=== PATIENT | female | born 1935 ===

== ENCOUNTER 2016-12-30 12:58 | Observation (INO) | payer MEDICARE, MEDICAID ==
[2016-12-30 13:18] VITALS: BMI 18.3
[2016-12-30 13:50] LABS: ADD MANUAL DIFF? NO
--- NOTE | 2016-12-30 14:00 | ED PDOC ---
Arrival/HPI - General Chief Complaint: Syncope Time Seen by Provider: 12/30/16 13:29 Historian: Patient, Family (Yasmeen: [phone]) - History of Present Illness Narrative History of Present Illness (Text): 12/30/16 13:53 81 year old female with a past medical history that includes atrial fibrillation presents to the emergency department after reported syncopal episode. Family member states that patient was sitting in a chair and looked pale when she slipped out of the chair. Denies any trauma or injury. Pt denies any pain at this time. Family states the patient did not hit her head. Patient denies nausea or vomiting before the episode. No shaking. Time/Duration: Prior to Arrival Symptom Onset: Sudden Symptom Course: Resolved Modifying Factors (Text): None Associated Symptoms (Text): None Past Medical History - Provider Review Nursing Documentation Reviewed: Yes - Infectious Disease Hx of Infectious Diseases: None - Cardiac Hx Cardiac Disorders: Yes (Afib (on Coumadin)) Hx Congestive Heart Failure: Yes Hx Hypertension: Yes - Pulmonary Hx Respiratory Disorders: No - Neurological Hx Neurological Disorder: Yes HX Cerebrovascular Accident: Yes ("2-3 weeks ago" as per family) Hx Dementia: Yes - HEENT Hx HEENT Disorder: No - Renal Hx Renal Disorder: No - Endocrine/Metabolic Hx Hypothyroidism: Yes - Hematological/Oncological Hx Blood Transfusions: No Hx Blood Transfusion Reaction: No - Integumentary Hx Dermatological Disorder: No - Musculoskeletal/Rheumatological Hx Arthritis: Yes - Gastrointestinal Hx Gastrointestinal Disorders: No - Genitourinary/Gynecological Hx Genitourinary Disorders: Yes Hx Urinary Tract Infection: Yes - Psychiatric Hx Psychophysiologic Disorder: Yes Hx Depression: Yes Hx Substance Use: No - Surgical History Other/Comment: Colonoscopy in 2012 - Anesthesia Hx Anesthesia Reactions: No Hx Malignant Hyperthermia: No Family/Social History - Physician Review Nursing Documentation Reviewed: Yes Family/Social History: Unknown Family HX Smoking Status: Unknown If Ever Smoked Hx Alcohol Use: No Hx Substance Use: No Allergies/Home Meds Allergies/Adverse Reactions: Allergies No Known Allergies Allergy (Verified 12/30/16 13:09) Home Medications: Home Meds Medication Instructions Recorded Confirmed Cevimeline HCl 30 mg PO TID 12/08/15 12/30/16 Review of Systems - Physician Review All systems were reviewed & negative as marked: Yes Physical Exam - Physical Exam Narrative Physical Exam (Text): - Review of Systems Constitutional: Normal. absent: Fatigue, Weight Change, Fevers Eyes: Normal ENT: Normal Respiratory: Normal absent: SOB, Cough, Sputum Cardiovascular: Syncope absent: Chest pain, Palpitations Gastrointestinal: Normal absent: Abdominal pain, Diarrhea, Nausea, Vomiting Genitourinary: Normal. absent: Dysuria, Frequency, Hematuria Musculoskeletal: Normal. absent: Arthralgias, Back Pain, Neck Pain Skin: Normal Neurological: Normal absent: Focal Weakness Endocrine: Normal Hemo/Lymphatic: Normal Psychiatric: Normal - Physical exam Patient appears age appropriate, speaking full sentences without difficulty - Systems Exam Head: Present: Atraumatic, Normocephalic Pupils: Present: PERRL Extraocular Muscles: Present: EOMI Conjunctiva: Present: Normal Mouth: Present: Moist Mucous Membranes Neck: Present: Normal Range of Motion. No: MIDLINE TENDERNESS, Paraspinal Tenderness Respiratory/Chest: Present: Clear to Auscultation, Good Air Exchange. No: Respiratory Distress, Accessory Muscle Use, Tachypneic Cardiovascular: Present: Irregularly rhythm. Normal S1, S2, Peripheral Pulses Present. No: Murmurs Abdomen: Present: Normal Bowel Sounds, No: Tenderness, Peritoneal Signs, Rebound, Guarding, Distention Back: Present: Normal Inspection. No: Midline Tenderness, Paraspinal Tenderness Upper Extremity: Present: Normal Inspection. No: Cyanosis, Edema Lower Extremity: Present: Normal Inspection. No: Edema Neurological: Present: GCS=15, Speech Normal, cranial nerves II through XII fully intact with no cerebellar abnormality, neuro-sensory fully intact. No focal neurological deficits. Skin: Present: Warm, Dry, Normal Color. No: Rashes Lymphatic: Present: OX3, NI, NC Psychiatric: Present: Alert, Oriented x 3, Normal Insight, Normal Concentration Vital Signs Reviewed: Yes Vital Signs Temp Pulse Resp BP Pulse Ox 12/30/16 13:17 98.6 F 78 19 102/59 L 100 Temperature: Afebrile Blood Pressure: Normal Pulse: Bradycardic Respiratory Rate: Normal Appearance: Positive for: Well-Appearing, Non-Toxic, Comfortable Pain Distress: None Mental Status: Positive for: Alert and Oriented X 3 Finger Stick Blood Glucose: 126 Medical Decision Making ED Course and Treatment: Impression: 81 year old female with a past medical history that includes atrial fibrillation presents s/p reported syncopal episode. On physical exam, patient has irregular rhythm, rate controlled (states she has a hx of a. fib). No focal neurological deficits. Differential Diagnosis included but are not limited to: Syncope Plan: -- CT Head, EKG, Chest X-ray -- Labs -- Reassess and disposition Prior Visits: Notes and results from previous visits were reviewed. Patient was discharged on 12/11/16 after being admitted for syncopal episode/CVA. Progress Notes: PROCEDURE: CT HEAD WITHOUT CONTRAST. Hot Die Press Feeder : Brady Avendaño MD IMPRESSION: No acute intracranial findings EKG shows irregular rhythm at [address]-segment elevations. Atrial fibrillation. Interpreted by me. 12/30/16 15:[address] Sahu, agrees with obs under his service with Ifeoma Keller and Heath Stern on consult pt in no distress no focal neuro deficits on reeval, aware of and agrees with plan - Lab Interpretations Lab Results: 12/30/16 13:35 12/30/16 13:35 Lab Results 12/30/16 13:35: WBC 4.9 D, RBC 3.93, Hgb 11.5 L, Hct 34.4 L, MCV 87.5, MCH 29.3 , MCHC 33.4, RDW 15.2 H, Plt Count 117 L, MPV 11.2 H, Gran % 69.4 H, Lymph % ( Auto) 22.6, Scott % (Auto) 6.4 H, Eos % (Auto) 1.4 L, Baso % (Auto) 0.2, Gran # 3.38, Lymph # 1.1 L, Scott # 0.3, Eos # 0.1, Baso # 0.01, PT 14.2 H, INR 1.31 H, APTT 27.5, Sodium 132, Potassium 4.1, Chloride 98, Carbon Dioxide 27, Anion Gap 11, BUN 20, Creatinine 0.7, Est GFR ( Amer) > 60, Est GFR (Non-Af Amer) > 60, Random Glucose 111 H, Calcium 8.8, Total Bilirubin 0.6, AST 31, ALT 12, Alkaline Phosphatase 57, Lactate Dehydrogenase 427, Total Creatine Kinase < 20 L , Troponin I < 0.01, Total Protein 8.5 H, Albumin 3.6, Globulin 4.9, Albumin/ Globulin Ratio 0.7 L - RAD Interpretation Radiology Orders: 12/30/16 13:30 HEAD W/O CONTRAST [CT] Stat CHEST PORTABLE [RAD] Stat - Scribe Statement The provider has reviewed the documentation as recorded by the Richie Liang Provider Scribe Attestation: All medical record entries made by the Scribe were at my direction and personally dictated by me. I have reviewed the chart and agree that the record accurately reflects my personal performance of the history, physical exam, medical decision making, and the department course for this patient. I have also personally directed, reviewed, and agree with the discharge instructions and disposition. Disposition/Present on Arrival - Present on Arrival Any Indicators Present on Arrival: No History of DVT/PE: No History of Uncontrolled Diabetes: No Urinary Catheter: No History of Decub. Ulcer: No History Surgical Site Infection Following: None - Disposition Have Diagnosis and Disposition been Completed?: Yes Diagnosis: Syncope Disposition: HOSPITALIZED Disposition Time: 15:16 Patient Plan: Observation Patient Problems: Current Active Problems Problem Status Diagnosed Syncope Acute Condition: FAIR Discharge Instructions (ExitCare): Syncope (ED)
[2016-12-30 14:06] LABS: BASO # 0.01 K/mm3 (0.0-2.0); BASO % 0.2 % (0.0-3.0); EOS # 0.1 (0.0-0.7); EOS % 1.4 % (1.5-5.0); GRAN # 3.38 (1.4-6.5); GRAN % 69.4 % (50.0-68.0); HEMATOCRIT 34.4 % (36.0-48.0); LYMPH # 1.1 (1.2-3.4); LYMPH % 22.6 % (22.0-35.0); MEAN CELL VOLUME 87.5 fL (80.0-105.0); MEAN CORPUSCULAR HEMOGLOBIN 29.3 pg (25.0-35.0); MEAN CORPUSCULAR HGB CONC 33.4 g/dl (31.0-37.0); MEAN PLATELET VOLUME 11.2 fl (7.0-11.0); MONO # 0.3 (0.1-0.6); MONO % 6.4 % (1.0-6.0); PLATELET COUNT 117 10^3/uL (120.0-450.0); RED CELL DISTRIBUTION WIDTH 15.2 % (11.5-14.5); WHITE BLOOD COUNT 4.9 10^3/ul (4.5-11.0)
[2016-12-30 14:07] LABS: ALB/GLOB RATIO 0.7 (1.1-1.8); ALKALINE PHOSPHATASE 57 U/L (38-133); ALT/SGPT 12 U/L (7-56); AST/SGOT 31 U/L (15-39); BILIRUBIN,TOTAL 0.6 mg/dL (0.2-1.3); BLOOD UREA NITROGEN 20 mg/dL (7-21); CALCIUM 8.8 mg/dL (8.4-10.5); CARBON DIOXIDE 27 mmol/L (21-33); CHLORIDE 98 mmol/L (98-107); GFR AFRICAN-AMERICAN > 60; GLUCOSE,RANDOM 111 mg/dL (70-110); POTASSIUM 4.1 mmol/L (3.6-5.0); SODIUM 132 mmol/L (132-148); TOTAL PROTEIN 8.5 g/dL (5.8-8.3)
[2016-12-30 14:18] LABS: INR 1.31 (0.93-1.08); PARTIAL THROMBOPLASTIN TIME 27.5 Seconds (23.7-30.8)
[2016-12-30 14:22] LABS: TROPONIN I < 0.01 ng/mL
--- NOTE | 2016-12-30 14:36 | RAD ---
HISTORY: cough COMPARISON: 12/04/2016 FINDINGS: LUNGS: There is a right lung nodule measuring 18 mm in diameter. This is unchanged. The lungs are otherwise clear PLEURA: No significant pleural effusion identified, no pneumothorax apparent. CARDIOVASCULAR: Normal. OSSEOUS STRUCTURES: No significant abnormalities. VISUALIZED UPPER ABDOMEN: Normal. OTHER FINDINGS: None. IMPRESSION: No change in right lung nodule. No acute findings
--- NOTE | 2016-12-30 15:06 | CT ---
PROCEDURE: CT HEAD WITHOUT CONTRAST. HISTORY: syncope COMPARISON: 12/04/2016 TECHNIQUE: Axial computed tomography images were obtained through the head/brain without intravenous contrast. Radiation dose: Total exam DLP = 688 mGy-cm. This CT exam was performed using one or more of the following dose reduction techniques: Automated exposure control, adjustment of the mA and/or kV according to patient size, and/or use of iterative reconstruction technique. FINDINGS: HEMORRHAGE: No intracranial hemorrhage. BRAIN: No mass effect or edema. There is left frontal encephalomalacia. Chronic microvascular changes are seen in the periventricular white matter. VENTRICLES: Unremarkable. No hydrocephalus. CALVARIUM: Unremarkable. PARANASAL SINUSES: Unremarkable as visualized. No significant inflammatory changes. MASTOID AIR CELLS: Unremarkable as visualized. No inflammatory changes. OTHER FINDINGS: None. IMPRESSION: No acute intracranial findings
--- NOTE | 2016-12-30 18:53 | CARD ---
APPROVED REPORT EKG Measurement Heart [id number] <Conclusion> Atrial fibrillation Rightward axis T wave abnormality, consider anterolateral ischemia or digitalis effect Abnormal ECG
--- NOTE | 2016-12-30 21:05 | CON ---
DATE: 12/30/2016 HISTORY OF PRESENT ILLNESS: This is an 81-year-old female with past medical history of atri al fibrillation. The patient was sitting in a chair, ____ and fell out of the chair. CAT scan of th e head in the Emergency Room was done, did not show any bleed. Called to evaluate the patient. A pa st medical history of atrial fibrillation and congestive heart failure and hypertension. The patient also had a stroke recently 2-3 weeks ago as per family, and dementia and hypothyroidism. REVIEW OF SYSTEMS: A 10-point review of systems was negative. ALLERGIES: No known drug allergies. SOCIAL HISTORY: Does not smoke, does not drink. PHYSICAL EXAMINATION: HEENT: Normocephalic, atraumatic. NECK: Supple. NEUROLOGIC: Alert, awake, oriented x 3. No aphasia. Cranial nerves II through XII were tested. Pu pils reactive. EOM intact. Visual carmona full. No facial asymmetry. Tongue midline. MOTOR EXAMIN ATION: Spontaneous movement of all the extremities noted. Deep tendon reflexes 1+. Both plantars a re downgoing. Sensory appears intact. Cerebellar gait deferred. IMPRESSION: Syncope, less likely seizure. CAT scan of the head was negative. Workup in progress. We will do EEG and follow up. Santosh Stern MD cc: [id number] TT: 12/30/2016 21:04:59 Confirmation # [id number] Dictation # [id number] [email or web address]
[2016-12-31 06:00] VITALS: TEMP 98; O2SAT 97
[2016-12-31] MEDS ORDERED: Levothyroxine 75 MCG TAB PO SCH (08:30)
--- NOTE | 2016-12-31 10:51 | HP ---
SUBJECTIVE: I saw her in her room this morning. She is sitting up, resting comfortably, alert, talking Guatemalan and broken Estonian, but she is comfortable, in no acute distress. She comes in, an 81-year-old female with a family member. I saw her sitting in a chair, looked pale and slipped out of her chair. No trauma but she was kind out of it. She did not hit her head. No nausea, vomiting, no shaking. PAST MEDICAL HISTORY: She has a past medical history of atrial fibrillation, hypertension, CHF, CVA 2-3 weeks ago as per the family, a little dementia, hypothyroidism, arthritis, depression, urinary tract infections. Colonoscopy in 2011. FAMILY HISTORY: Hypertension in the family. SOCIAL HISTORY: No smoking, no drinking, no drugs. ALLERGIES: No known drug allergies. MEDICATIONS: She is on Norvasc, Coumadin, Refresh eyedrops, Synthroid, Cevimeline, and carvedilol. REVIEW OF SYSTEMS: No apparent change in vision or hearing. No pain. No chest pain or shortness of breath, no abdominal pain, no skin issues. No focal weakness. She is quite comfortable. PHYSICAL EXAMINATION: VITAL SIGNS: She has 98.6 temp, 78 pulse, 19 respiratory rate, 102/ blood pressure, 100% O2 sat. HEENT: Head is atraumatic, normocephalic. Extraocular muscles are intact. Pupils reactive to light. Throat moist. NECK: Supple, no tenderness. HEART: Irregular rhythm, normal S1, S2. LUNGS: Decreased breath sounds but clear to auscultation. No rhonchi, rales or wheezes. ABDOMEN: Soft, nontender, positive bowel sounds, no guarding, no rebound, no CVA tenderness. EXTREMITIES: Have no edema. She can move all 4 extremities. GCS is 15, normal speech. NEUROLOGIC: Cranial nerves II-XII grossly intact. Skin is warm and dry. Thyroid midline. No palpable lymphadenopathy. She is alert. I understand is going on. Well-appearing, nontoxic. She is here for syncope, AFib, old CVA, dementia, hypothyroid. She will have a consult with neurology and cardiology. She is on Coreg, Coumadin, Norvasc, and Synthroid. LABORATORY DATA: She has a 132 sodium, potassium 4.1, BUN is 20, creatinine 0.7. Sugar is 111, calcium is 8.8, total bili is 0.6, AST 31, ALT is 12, alkaline phosphatase 57. Troponin is less than 0.01, total protein is 8.5. INR is 1.31. Sodium 132, potassium 4.1, BUN 20, creatinine 0.7, GFR is greater than 60. She did well with her blood tests. CT scan of the head: There is no acute intracranial findings. Chest x-ray showed no change in right lung nodule. An EKG showed AFib, rate controlled. PLAN: If it is okay with Dr. Keller and Dr. Stern will discharge her today. She is in observation. She is here for syncope. Dario Sahu DO cc: [id number] TT: 12/31/2016 10:51:26 jn MTDD
--- NOTE | 2016-12-31 11:54 | CP.PCM.PCO ---
Physician Communication Note - Physician Communication Note Physician Communication Note: syncope sec transient cerebral hypoperfusion. can do eeg as outpt.
--- NOTE | 2016-12-31 15:19 | CON ---
DATE: 12/31/2016 HISTORY OF PRESENT ILLNESS: The patient is an 81-year-old woman who presents with a syncopal episode . PAST MEDICAL HISTORY: Notable for chronic atrial fibrillation as well as documented apical thrombus in the past. The patient has had a CVA and TIA in the past. The patient has a history of hypertension. Currently, the patient is without chest pain, without shortness of breath. The patient is currently on Coumadin in which her PT/INR came back subtherapeutic. SOCIAL HISTORY: Lives at home. REVIEW OF SYSTEMS: A 14-point review of systems was reviewed. No cardiac symptomatology is noted. PHYSICAL EXAMINATION: VITAL SIGNS: Blood pressure 138/63. The heart rate is in the 80s, atrial fibrillation. NECK: Negative JVD. LUNGS: Without rales. HEART: Revealed S1, S2. EXTREMITIES: Without edema. EKG shows atrial fibrillation with nonspecific ST-T changes. LABORATORIES: INR yesterday was 1.31, hemoglobin is 11.5. Chemistries reveal troponins that are neg ative x 1. IMPRESSION: 1. Status post syncope without documented cardiac cause of her syncope. No left ventricular outflo w obstruction is noted. No bradycardia is noted. 2. History of hypertension. 3. History of cerebrovascular accident. 4. Chronic atrial fibrillation. 5. Documented left ventricular thrombus. Given these findings, given the patient's inability to remain consistently anticoagulated on Coumadin , we will change her warfarin to Eliquis 2.5 b.i.d. to better protect her from thromboembolism from h er atrial fibrillation and apical thrombus. Rohith Keller MD cc: [id number] TT: 12/31/2016 15:19:23 Confirmation # [id number] Dictation # [id number] mina
--- NOTE | 2016-12-31 16:41 | DS ---
I saw her resting in bed. She is comfortable, in good spirits. No acute distress. Neuro ordered so me tests. We are waiting for cardiology to see her this morning. But, she is comfortable, she is at her baseline. VITAL SIGNS: She has a 98 temp, 91 pulse, 147/90 blood pressure, 18 respiratory rate, 97% O2 sat on room air. MEDICATIONS: She is back on her medications: Coreg, Coumadin, Norvasc, and Synthroid. PHYSICAL EXAMINATION: VITAL SIGNS: Good. HEENT: Head is atraumatic. HEART: Regular rate. LUNGS: Clear to auscultation. ABDOMEN: Soft. EXTREMITIES: No edema. Neuro had seen her, doing a couple of workups. Waiting for cardiology to come in. If everything is okay, I would like to discharge her home today. She was here for syncope, rate controlled AFib, lyn tary right lung nodule, old CVA, dementia, hypothyroid. She will follow up next week. Dario Sahu DO cc: [id number] TT: 12/31/2016 16:41:07 sn
--- NOTE | 2016-12-31 19:10 | EEG ---
DATE: 12/31/2016 AGE: An 81-year-old woman. DIAGNOSIS: Syncope. MEDICATIONS: Reviewed via nurse's reconciliation sheet. INTERPRETATION: This is a 16-channel international recording. The background activity was composed of 6 cycles per second. There was a limited amount of beta activity at 16-20 cycles per second seen in this tracing. There was an increased amount of theta activity at 5-7 cycles seen in this tracing. Drowsiness was characterized by mixed beta and theta activities. Sleep was characterized by vertex transient waves, sleep spindles, and bilateral slowing. Photic stimulation showed no change in the tracing. No paroxysmal activity noted in this recording. There is evidence of diffuse slowing throu ghout the EEG in both electrical carmona. CONCLUSION: Abnormal electroencephalogram due to presence of diffuse slowing, consistent with bilate ral cerebral dysfunction. Please clinically correlate. No evidence of any seizure-like activity. Anam Stern MD cc: [id number] TT: 12/31/2016 19:10:09 Confirmation # [id number] Dictation # [id number] [email or web address]
[2016-12-31 19:13] VITALS: BP 122/77; PULSE 90; RESP 20
== END 2016-12-31 21:00 | disposition home or self-care (01) ==
LOC: ED 12:58 → ERH 15:18 → 2RSO 18:25
PROVIDERS: ADMIT Family Medicine; ATTEND Family Medicine
DX: R55 Syncope and collapse (principal); I48.2 Chronic atrial fibrillation; I50.9 Heart failure, unspecified; I11.0 Hypertensive heart disease with heart failure; W07.XXXA Fall from chair, initial encounter; F03.90 Unspecified dementia, unspecified severity, without behavioral disturbance, psychotic disturbance, mood disturbance, and anxiety; E03.9 Hypothyroidism, unspecified; Z86.73 Personal history of transient ischemic attack (TIA), and cerebral infarction without residual deficits; M19.90 Unspecified osteoarthritis, unspecified site; F32.89 Other specified depressive episodes; Z87.440 Personal history of urinary (tract) infections; Z79.01 Long term (current) use of anticoagulants; Z82.49 Family history of ischemic heart disease and other diseases of the circulatory system; R91.1 Solitary pulmonary nodule
CPT/HCPCS: 70450; 71010; 80053; 82550; 82948; 83615; 84484; 85025; 85610; 85730; 93005; 95812; 99285; G0378

== ENCOUNTER 2017-05-08 11:43 | Inpatient (IN) | payer MEDICARE, MEDICAID ==
[2017-05-08 11:53] VITALS: BMI 19.9
--- NOTE | 2017-05-08 12:02 | ED PDOC ---
Arrival/HPI - General Chief Complaint: Syncope Time Seen by Provider: 05/08/17 11:44 Historian: Patient - History of Present Illness Narrative History of Present Illness (Text): 05/08/17 12:10 Emily Dave is an 82 year old female who presents to the emergency department complaining of near syncope prior to arrival and reported hypotension by EMS en route to emergency department. Patient states that she was sitting at home when she told her home health aide that she felt lightheaded. When patient stated that she felt like she was "going to pass out, " EMS was called. Patient denies any fever, cough, chest pain, shortness of breath headache, diarrhea, or any other complaints at this time. 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) Other/Comment: bilateral eye twitching, unrelated to cva - Renal Hx Renal Disorder: No - Endocrine/Metabolic Hx Hypothyroidism: Yes - Hematological/Oncological Hx Blood Transfusions: No Hx Blood Transfusion Reaction: No - Integumentary Hx Dermatological Disorder: No - Musculoskeletal/Rheumatological Hx Arthritis: Yes Hx Falls: Yes - Gastrointestinal Hx Gastrointestinal Disorders: No - Genitourinary/Gynecological Hx Genitourinary Disorders: Yes Hx Urinary Tract Infection: Yes - Psychiatric Hx Depression: Yes Hx Substance Use: No - Surgical History Other/Comment: Colonoscopy in 2011 - Anesthesia Hx Anesthesia Reactions: No Hx Malignant Hyperthermia: No Family/Social History - Physician Review Nursing Documentation Reviewed: Yes Family/Social History: No Known Family HX Smoking Status: Never Smoked Hx Alcohol Use: No Hx Substance Use: No Allergies/Home Meds Allergies/Adverse Reactions: Allergies No Known Allergies Allergy (Verified 12/30/16 13:09) Home Medications: Home Meds Medication Instructions Recorded Confirmed Apixaban [Eliquis] 5 mg PO DAILY 05/08/17 05/08/17 Atorvastatin [Lipitor] 40 mg PO DAILY 05/08/17 05/08/17 Carvedilol [Coreg] 12.5 mg PO DAILY 05/08/17 05/08/17 Cevimeline HCl [Cevimeline HCl] 30 mg PO DAILY 05/08/17 05/08/17 Levothyroxine [Synthroid] 75 mcg PO DAILY 05/08/17 05/08/17 amLODIPine [Norvasc] 2.5 mg PO DAILY 05/08/17 05/08/17 cycloSPORINE [Restasis] 0.05 % OP DAILY 05/08/17 05/08/17 Review of Systems - Physician Review All systems were reviewed & negative as marked: Yes - Review of Systems Constitutional: absent: Fevers, Night Sweats Eyes: absent: Vision Changes ENT: absent: Hearing Changes Respiratory: absent: SOB, Cough Cardiovascular: Syncope (near syncope). absent: Chest Pain Gastrointestinal: absent: Abdominal Pain Genitourinary Female: absent: Dysuria, Frequency Musculoskeletal: absent: Arthralgias Skin: absent: Rash, Pruritis Neurological: absent: Headache, Dizziness Endocrine: absent: Diaphoresis Hemo/Lymphatic: absent: Adenopathy Psychiatric: absent: Anxiety Physical Exam Vital Signs Reviewed: Yes Vital Signs Temp Pulse Resp BP Pulse Ox 05/08/17 11:50 97.9 F 70 16 128/71 100 Temperature: Afebrile Blood Pressure: Normal Pulse: Regular Respiratory Rate: Normal Appearance: Positive for: Well-Appearing, Non-Toxic, Comfortable Pain Distress: None Mental Status: Positive for: Alert and Oriented X 3 - Systems Exam Head: Present: Atraumatic, Normocephalic Pupils: Present: PERRL Extroacular Muscles: Present: EOMI Conjunctiva: Present: Normal Mouth: Present: Moist Mucous Membranes Neck: Present: Normal Range of Motion Respiratory/Chest: Present: Clear to Auscultation, Good Air Exchange. No: Respiratory Distress, Accessory Muscle Use Cardiovascular: Present: Regular Rate and Rhythm, Normal S1, S2. No: Murmurs Abdomen: Present: Normal Bowel Sounds. No: Tenderness, Distention, Peritoneal Signs Back: Present: Normal Inspection Upper Extremity: Present: Normal Inspection. No: Cyanosis, Edema Lower Extremity: Present: Normal Inspection. No: Edema Neurological: Present: GCS=15, CN II-XII Intact, Speech Normal Skin: Present: Warm, Dry, Normal Color. No: Rashes Psychiatric: Present: Alert, Oriented x 3, Normal Insight, Normal Concentration Medical Decision Making ED Course and Treatment: 05/08/17 12:01 Impression: 82 year old female complaining of near syncope prior to arrival and reported hypotension by EMS en route to emergency department . Differential Diagnosis included but are not limited to: near syncope Plan: -- EKG -- Chest X-ray -- Urinalysis -- Labs -- IV Fluids -- Reassess and disposition Prior Visits: Notes and results from previous visits were reviewed. Patient last seen in the ED on 12/30/16 for a syncopal episode that day. Patient was admitted to hospitalist care for further evaluation. Progress Notes: EKG: Ordered, reviewed, and independently interpreted the EKG. Rate : 78 BPM Rhythm : A Fib Interpretation : T-wave inversions in inferior lateral leads, normal intervals. Comparison : No change from previous on 12/30/16. 05/08/17 16:17 Labs reviewed. EKG noted. CXR nl. Case discussed with Dr. Spencer who will accept on her service to Tele Obs. She requested Dr. Benavides and Dr. Stern. - Lab Interpretations Lab Results: 05/08/17 12:10 05/08/17 13:00 Lab Results 05/08/17 13:00: Sodium 135, Potassium 4.1, Chloride 100, Carbon Dioxide 26, Anion Gap 13, BUN 20, Creatinine 0.7, Est GFR ( Amer) > 60, Est GFR (Non- Af Amer) > 60, Random Glucose 104, Calcium 8.7, Magnesium 1.9, Total Bilirubin 0.6, AST 54 H, ALT 44, Alkaline Phosphatase 79, Lactate Dehydrogenase 360, Total Creatine Kinase 21 L, Troponin I < 0.01, Total Protein 8.4 H, Albumin 3.6 , Globulin 4.8, Albumin/Globulin Ratio 0.8 L 05/08/17 12:10: PT 12.5 H, INR 1.16 H, APTT 27.0 05/08/17 12:10: WBC 4.4 L, RBC 4.02, Hgb 11.9 L, Hct 35.3 L, MCV 87.8, MCH 29.6 , MCHC 33.7, RDW 14.6 H, Plt Count 140, MPV 11.6 H, Gran % 72.1 H, Lymph % (Auto ) 19.7 L, [place] % (Auto) 6.8 H, Eos % (Auto) 1.4 L, Baso % (Auto) 0.0, Gran # 3.18, Lymph # 0.9 L, [place] # 0.3, Eos # 0.1, Baso # 0.00 - RAD Interpretation Radiology Orders: 05/08/17 12:13 CHEST PORTABLE [RAD] Stat 05/08/17 15:24 Brain [HEAD W/O CONTRAST] [CT] Stat - Medication Orders Current Medication Orders: Acetaminophen (Tylenol 325mg Tab) 650 mg PO Q4H PRN PRN Reason: Pain, Mild (1-3) Ondansetron HCl (Zofran Inj) 4 mg IVP Q4H PRN PRN Reason: Nausea/Vomiting Discontinued Medications Sodium Chloride (Sodium Chloride 0.9%) 500 mls @ 999 mls/hr IV .Q31M STA Stop: 05/08/17 12:43 Last Admin: 05/08/17 12:30 Dose: 999 mls/hr Disposition/Present on Arrival - Present on Arrival Any Indicators Present on Arrival: No History of DVT/PE: No History of Uncontrolled Diabetes: No Urinary Catheter: No History of Decub. Ulcer: No History Surgical Site Infection Following: None - Disposition Have Diagnosis and Disposition been Completed?: Yes Diagnosis: Near syncope Disposition: HOSPITALIZED Disposition Time: 15:22 Patient Plan: Observation Condition: FAIR Forms: Pinger (E[place]ian)
[2017-05-08] MEDS ORDERED: Sodium Chloride 0.9% 500 ML IV STA (12:13)
[2017-05-08 12:41] LABS: EOS # 0.1 (0.0-0.7); EOS % 1.4 % (1.5-5.0); GRAN # 3.18 (1.4-6.5); GRAN % 72.1 % (50.0-68.0); HEMOGLOBIN 11.9 g/dL (12.0-16.0); LYMPH # 0.9 (1.2-3.4); LYMPH % 19.7 % (22.0-35.0); MEAN CELL VOLUME 87.8 fl (80.0-105.0); MEAN CORPUSCULAR HEMOGLOBIN 29.6 pg (25.0-35.0); MEAN CORPUSCULAR HGB CONC 33.7 g/dl (31.0-37.0); MEAN PLATELET VOLUME 11.6 fl (7.0-11.0); MONO # 0.3 (0.1-0.6); MONO % 6.8 % (1.0-6.0); PLATELET COUNT 140 10^3/uL (120.0-450.0); RBC 4.02 10^6/uL (3.5-6.1); RED CELL DISTRIBUTION WIDTH 14.6 % (11.5-14.5); WHITE BLOOD COUNT 4.4 10^3/ul (4.5-11.0)
--- NOTE | 2017-05-08 12:41 | RAD ---
HISTORY: Near syncope COMPARISON: 12/30/2016 FINDINGS: LUNGS: There is a 15 mm nodule in the right lung. This is unchanged PLEURA: No significant pleural effusion identified, no pneumothorax apparent. CARDIOVASCULAR: Mild cardiomegaly OSSEOUS STRUCTURES: No significant abnormalities. VISUALIZED UPPER ABDOMEN: Normal. OTHER FINDINGS: None. IMPRESSION: No active disease.
[2017-05-08 12:46] LABS: INR 1.16 (0.93-1.08); PROTHROMBIN TIME 12.5 Seconds (9.9-11.8)
[2017-05-08 13:33] LABS: ALB/GLOB RATIO 0.8 (1.1-1.8); ALBUMIN 3.6 g/dL (3.0-4.8); ALT/SGPT 44 U/L (7-56); AST/SGOT 54 U/L (15-39); BLOOD UREA NITROGEN 20 mg/dL (7-21); CALCIUM 8.7 mg/dL (8.4-10.5); GFR AFRICAN-AMERICAN > 60; GFR NON-AFRICAN AMERICAN > 60; MAGNESIUM 1.9 mg/dL (1.7-2.2)
[2017-05-08 13:49] LABS: TROPONIN I < 0.01 ng/mL
--- NOTE | 2017-05-08 18:04 | CT ---
PROCEDURE: CT HEAD WITHOUT CONTRAST. HISTORY: near syncope COMPARISON: Noncontrast head CT performed 12/30/16 TECHNIQUE: Axial computed tomography images were obtained through the head/brain without intravenous contrast. Radiation dose: Total exam DLP = 725.84 mGy-cm. This CT exam was performed using one or more of the following dose reduction techniques: Automated exposure control, adjustment of the mA and/or kV according to patient size, and/or use of iterative reconstruction technique. FINDINGS: HEMORRHAGE: No intracranial hemorrhage. BRAIN: Diffuse atrophy with prominence of the ventricles and sulci noted. No mass effect or edema. Intracranial atherosclerotic calcifications. Left frontal encephalomalacia. Moderate scattered periventricular and subcortical white matter hypodensities, which are nonspecific, but often seen with chronic microvascular ischemic disease. Please note that MRI with diffusion imaging is more sensitive in the detection of acute ischemic event. VENTRICLES: No hydrocephalus. CALVARIUM: Unremarkable. PARANASAL SINUSES: Unremarkable as visualized. No significant inflammatory changes. MASTOID AIR CELLS: Partial opacification/ fluid within bilateral mastoid air cells. OTHER FINDINGS: None. IMPRESSION: Left frontal encephalomalacia. Nonspecific moderate scattered white matter changes as above. Partial opacification/fluid within bilateral mastoid air cells. Correlate clinically for possibility of mastoiditis. Generalized atrophy.
--- NOTE | 2017-05-08 20:12 | CON ---
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 She has had some mild generalized weakness, but no foal weakness of the extremities at this time. She is moving all extremities. No *------* seen on neuro exam. CT of the head showed no intracranial abnormalities, left frontal encephalomalacia, chronic ischemic changes. She is following simple commands. She is again hydrated. Blood pressure systolic and diastolic on the lower side as well.. PAST MEDICAL HISTORY: CHF, hypothyroidism, hyperlipidemia, atrial fibrillation on Eliquis, hypertension, history of left apex thrombosis, history of EF of 30-35%, history of syncopal events in the past. SOCIAL HISTORY: No illicit drug use, smoking, or EtOH abuse. FAMILY HISTORY: Noncontributory. ALLERGIES: NO KNOWN DRUG ALLERGY. MEDICATIONS: Reviewed by the nurse per reconciliation sheet. REVIEW OF SYSTEMS: A 14-point review of systems is negative except as in the HPI. PHYSICAL EXAMINATION: GENERAL: The patient is seen up in the bed, no acute distress. VITAL SIGNS: Afebrile, pulse rate of 80, blood pressure of 106/57, respiratory rate 20, oxygen saturation 98% on room air. HEENT: Head is atraumatic and normocephalic. PERRLA. Extraocular muscles intact. NECK: Supple. No JVD. No adenopathy noted. LUNGS: Clear to auscultation. No adventitious sounds. HEART: S1 and S2. Regular rate and rhythm. No murmurs, rubs, or gallops. ABDOMEN: Soft, nontender, nondistended. Bowel sounds present. EXTREMITIES: No clubbing and no cyanosis. Peripheral pulses 2+ felt bilaterally. NEUROLOGIC: The patient is alert and oriented to person, place, and month, but not year. Recall after 5 minutes is 0 out of 3. Cannot spell the work backwards. Poor attention span, slow thought process. Cranial nerves II through XII intact. Motor exam, slight increase tone throughout. Has mild right side upper extremity weakness, right slow finger tap from prior CVA. Toes are downgoing bilaterally. Sensory exam, light touch, pinprick, proprioception. Coordination, [id number] intact. Gait is deferred for now. DTRs are 1+ throughout. LABORATORY DATA: Sodium is 135, potassium 4.1, chloride 100, carbon dioxide 26, BUN of 20, creatine 0.7, random glucose of 104. ASSESSMENT: This is an 83-year-old woman with a history of atrial fibrillation on Eliquis,history of left anterior frontal and left thalamic infarct in the past, history of left apical thrombus, history of hypertension, hyperlipidemia, congestive heart failure, hypothyroidism, came in for near syncopal episode and found to be lightheaded and was felt like she was almost going to pass out. Neuro exam has some mild residual right side slow finger tap from prior CVA. She has low systolic and diastolic blood pressure. Her near syncopal event is likely secondary to transient cerebral hypoperfusion to the brain given that she has an EF of 30-35%. In the past, her EEG showed mild cerebral dysfunction. No evidence of any epileptiform activity in December 2016. Currently, she is clinically stable. At this time, we recommend to continue with aspirin, Eliquis, or stroke prevention given that she has apical thrombus and increased respiratory strokes. 2. Continue Synthroid for hypothyroidism. 3. Monitor electrolytes and avoid sudden drops in her systolic and diastolic blood pressures. 4. Continue to monitor on a Holter to evaluate for any abnormal arrhythmias and follow up with eyeglass fitter recommendations. 5. Get orthostatic vital signs and continue on current present medical management. Anam Stern MD
[2017-05-08] MEDS ORDERED: Pneumococcal 23-Valent Vaccine IM ONE (22:41)
--- NOTE | 2017-05-09 00:24 | CARD ---
APPROVED REPORT EKG Measurement Heart [id number] <Conclusion> Atrial fibrillation T wave abnormality, consider inferolateral ischemia or digitalis effect Prolonged QT Abnormal ECG
[2017-05-09 10:16] LABS: BASO # 0.01 K/mm3 (0.0-2.0); BASO % 0.2 % (0.0-3.0); EOS # 0.1 (0.0-0.7); GRAN # 3.43 (1.4-6.5); GRAN % 68.6 % (50.0-68.0); LYMPH # 1.1 (1.2-3.4); LYMPH % 21.4 % (22.0-35.0); MEAN CELL VOLUME 87.5 fl (80.0-105.0); MEAN CORPUSCULAR HEMOGLOBIN 29.2 pg (25.0-35.0); MEAN CORPUSCULAR HGB CONC 33.3 g/dl (31.0-37.0); MEAN PLATELET VOLUME 11.5 fl (7.0-11.0); MONO # 0.4 (0.1-0.6); MONO % 8.8 % (1.0-6.0); PLATELET COUNT 129 10^3/uL (120.0-450.0); RBC 3.77 10^6/uL (3.5-6.1); RED CELL DISTRIBUTION WIDTH 14.4 % (11.5-14.5)
[2017-05-09 10:26] LABS: ALB/GLOB RATIO 0.8 (1.1-1.8); ALBUMIN 3.9 g/dL (3.0-4.8); ALT/SGPT 46 U/L (7-56); AST/SGOT 52 U/L (15-39); BLOOD UREA NITROGEN 14 mg/dL (7-21); CALCIUM 8.7 mg/dL (8.4-10.5); GFR AFRICAN-AMERICAN > 60; GFR NON-AFRICAN AMERICAN > 60; MAGNESIUM 1.8 mg/dL (1.7-2.2)
[2017-05-09 10:37] LABS: TROPONIN I < 0.01 ng/mL
--- NOTE | 2017-05-09 19:41 | CON ---
DATE: 05/09/2017 REASON FOR CONSULTATION: Syncope. Asked to see the patient,reviewed the electronic medical record, we saw the patient while covering Dr. Keller. The patient follows Dr. Keller and we saw as a coverage on the weekend, so we will sign off and put the consult for Dr. Keller and inform Dr. Keller as well. Pasha Barlow MD MTDD
--- NOTE | 2017-05-09 20:42 | HP ---
DATE: 05/08/2017 CHIEF COMPLAINT: Syncope. HISTORY OF PRESENT ILLNESS: The patient is an 82-year-old female, came to the emergency room complaining of near syncope prior to arrival, reported hypotension to the emergency department. As per the patient, she was sitting at home. She told her room , that she felt lightheadedness and started feeling like going to pass out. EMS was called. No nausea, vomiting or diarrhea. No hematuria, no hematochezia. No chest pain, no palpitation. I saw the patient in the ER. PAST MEDICAL HISTORY: Atrial fibrillation, Coumadin at home. Congestive heart failure, hypertension, hypothyroidism, fall, arthritis, depression. FAMILY HISTORY: Father and mother noncontributory. HABITS: Never smoked. No drug. No ethanol. ALLERGIES: THE PATIENT IS NOT ALLERGIC TO ANY MEDICATIONS. HOME MEDICATIONS: Eliquis, Lipitor, Coreg, Synthroid, Norvasc, cyclosporine. REVIEW OF SYSTEMS: The patient was examined on the bedside in the ER. Looking comfortable. No nausea, vomiting, or diarrhea. No hematuria. No hematochezia. No swelling of the leg. No chest pain. No palpitation. No headache. No dizziness. PHYSICAL EXAMINATION VITAL SIGNS: Temperature 97.9, pulse 70, respiratory rate 15, blood pressure 128/71, pulse oximetry 100. HEENT: Head; normocephalic and atraumatic. Eyes: PERRLA. Extraocular muscles intact. Conjunctivae clear. Nose is patent. Mucous membranes moist. NECK: Supple. No carotid bruits, JVD or thyromegaly. CHEST: Bilaterally symmetrical. HEART: S1 and S2 positive. LUNGS: Clear to auscultation. ABDOMEN: Soft. Bowel sounds are present. No organomegaly. EXTREMITIES: No edema. No cyanosis. NEUROLOGIC: The patient is awake and alert. Moving all 4 extremities. No focal deficit. LABORATORY DATA: White blood cells 4.4, hemoglobin 11.9, hematocrit 35.3, platelets 140. Sodium 135, potassium 4.1, BUN 20, creatinine 0.6 and glucose 104. ASSESSMENT AND PLAN: The patient is an 82-year-old lady with leukopenia, anemia, came with presyncope. Neurology consult called with Dr. Stern. CAT scan of the head is done, has history of congestive heart failure, hypothyroidism, hypercholesterolemia, atrial fibrillation on Eliquis, hypertension, history of left apex thrombosis, history of ejection fraction 30% to 35%, history of syncopal attack in the past also. Continue aspirin, Synthroid for hypothyroidism, monitor electrolytes, monitor on heart to evaluate for any abnormal arrhythmias. The patient already had atrial fibrillation, gastric and deep venous thrombosis prophylaxis. We will check orthostatic vitals. In the past her EEG showed mild cerebral dysfunction. No evidence of any epileptiform in 12/2016. Clinically, looks stable. We will call cardiology consult also and we will follow up. Ashley Spencer MD MTDD
--- NOTE | 2017-05-09 21:10 | CON ---
DATE: 05/09/2017 HISTORY OF PRESENT ILLNESS: The patient is a 82-year-old woman who presents with a dizziness. The patient's past medical history is notable for multiple episodes of feeling dizzy. She had extensive workup. Cardiac junior, the patient has chronic atrial fibrillation with a documented atrial thrombus in the past. She has been unable to stay on Coumadin due to safety issues. She suffers from hypertension. Cardiac risk factors also includes hypertension. SOCIAL HISTORY: The patient does not smoke. REVIEW OF SYSTEMS: The patient is feeling well today. No chest pain. No shortness of breath. There is resolution of dizziness. PHYSICAL EXAMINATION VITAL SIGNS: Blood pressure is 132/84, heart rate in the 70s, atrial fibrillation. NECK: Negative JVD. Lungs: Without rales. HEART: S1 and S2. EXTREMITIES: Without edema. EKG shows atrial fibrillation with nonspecific ST-T changes. Hemoglobin is 11. Chemistries: Troponins are negative x2. Recent echocardiogram earlier this year shows an ejection fraction of 35% with an anterior apical organized thrombus. There is mild pulmonary hypertension. IMPRESSION 1. Recurrent dizziness. 2. Hypertension. 3. Ischemic dilated cardiomyopathy. 4. Apical thrombus. 5. Inability to place the patient on anticoagulation safely on Coumadin, so the patient has been treated with Eliquis. PLAN: Given these findings, workup for dizziness has been extensive without evidence for cardiac etiology. We may need to accept the higher blood pressure in her. We will DC her Norvasc and continue her Coreg. We will restart her Eliquis today. Rohith Keller MD
--- NOTE | 2017-05-10 02:53 | PN ---
The patient is 82 years old female. SUBJECTIVE: The patient is seen and examined on the bedside, looking comfortable. No nausea, vomiting, or diarrhea. No hematuria, no hematochezia. No swelling of the leg. No chest pain, no palpitation. No headache, no dizziness. No fever, no chills. PHYSICAL EXAMINATION VITAL SIGNS: Temperature 98.6, pulse 72, blood pressure 103/63, and respiratory rate 18. HEENT: Head; normocephalic and atraumatic. Eyes: PERRLA. Extraocular muscles intact. Conjunctivae clear. Nose is patent. Mucous membranes moist. NECK: Supple. No carotid bruits. JVD, or thyromegaly. CHEST: Bilaterally symmetrical. HEART: S1 and S2 positive. LUNGS: Clear to auscultation. ABDOMEN: Soft. Bowel sounds are present. No organomegaly. EXTREMITIES: No edema, no cyanosis. NEUROLOGIC: The patient is awake and alert. Moving all 4 extremities. No focal deficit. MEDICATIONS: Coreg, Eliquis, Lipitor, Synthroid, Tylenol, and Zofran. LABORATORY DATA: White blood cells 5.0, hemoglobin 11.0, hematocrit 33.0, and platelets 129. Sodium 133, potassium 3.7, BUN 14, creatinine 0.5, and glucose 130. ASSESSMENT AND PLAN: The patient is an 82 years old lady with basophilic leukopenia and improved anemia, hyperglycemia, abnormal liver function tests. Seen by Dr. Anam Stern, neurologist. History of congestive heart failure; hypothyroidism; hypercholesterolemia; atrial fibrillation, on Eliquis; hypertension, history of left apex thrombosis, ejection fraction of 30% to 35%, and history of syncopal events in the past. Neurologist and training generalist are on the case. History of hypercholesterolemia, came with near syncopal episode. Continue Synthroid for hypothyroidism. Monitoring on Holter monitor. GI and DVT prophylaxis. Repeat labs. We will follow up. Ashley Spencer MD [facility] C[facility]ERSebastian
[2017-05-10] MEDS: Levothyroxine 75 MCG TAB PO SCH (06:16)
[2017-05-10 07:51] LABS: HEMOGLOBIN 11.8 g/dL (12.0-16.0); MEAN CELL VOLUME 86.6 fl (80.0-105.0); MEAN CORPUSCULAR HEMOGLOBIN 28.9 pg (25.0-35.0); MEAN CORPUSCULAR HGB CONC 33.3 g/dl (31.0-37.0); MEAN PLATELET VOLUME 11.4 fl (7.0-11.0); RBC 4.09 10^6/uL (3.5-6.1); RED CELL DISTRIBUTION WIDTH 14.4 % (11.5-14.5); WHITE BLOOD COUNT 3.7 10^3/ul (4.5-11.0)
[2017-05-10 08:12] LABS: % IRON SATURATION 15 % (20-55); IRON 48 ug/dL (45-180); TOTAL IRON BINDING CAPACITY 310 ug/dL (265-497)
[2017-05-10 08:14] LABS: BLOOD UREA NITROGEN 13 mg/dL (7-21); CALCIUM 8.7 mg/dL (8.4-10.5); GFR AFRICAN-AMERICAN > 60; GFR NON-AFRICAN AMERICAN > 60; HDL CHOLESTEROL 26 mg/dL (29-60)
[2017-05-10 08:25] LABS: LDL CHOLESTEROL 81 mg/dL (0-129)
[2017-05-10 12:09] LABS: FOLATE 10.4 ng/mL
--- NOTE | 2017-05-10 12:55 | PN ---
DATE: 05/10/2017 SUBJECTIVE: The patient is comfortable in bed. No shortness of breath. No chest pain. PHYSICAL EXAMINATION: VITAL SIGNS: Blood pressure is 125/83, heart rates in the 70s, atrial fibrillation. NECK: Negative JVD. LUNGS: Without rales. HEART: S1 and S2. EXTREMITIES: Without edema. LABORATORY DATA: Hemoglobin is 11.8. Chemistries are unremarkable. IMPRESSION: 1. Chronic atrial fibrillation with a apical thrombus treating with anticoagulation. 2. Dilated cardiomyopathy. 3. History of hypertension. 4. Hypertension. PLAN: Given these findings, the patient's treatment should be anticoagulation along with Coreg. I will DC her Norvasc and stay off Norvasc. We may need to accept the pressure, it is a little bit higher for the patient up to 141-150 systolic given her recurrent symptoms on Norvasc. Rohith Keller MD
--- NOTE | 2017-05-11 02:59 | PN ---
DATE: SUBJECTIVE: The patient is seen and examined on the bedside, looks comfortable. No nausea, vomiting or diarrhea. No hematuria or hematochezia. No chest pain, no palpitation. No headache, no dizziness. PHYSICAL EXAMINATION VITAL SIGNS: Temperature 97.4, pulse 84, blood pressure is 127/83, and respiratory rate 16. HEENT: Head; normocephalic and atraumatic. Eyes: PERRLA. Extraocular muscles intact. Conjunctivae clear. Nose is patent. NECK: Supple. No carotid bruits. No thyromegaly. CHEST: Bilaterally symmetrical. HEART: S1 and S2 positive. LUNGS: Clear to auscultation. ABDOMEN: Soft. Bowel sounds are present. No organomegaly. EXTREMITIES: No edema. No cyanosis. NEUROLOGIC: The patient is awake, alert. Moving all 4 extremities. No focal deficit. MEDICATIONS: Coreg, Eliquis, Lipitor, Pepcid, Synthroid, Tylenol, and Zofran. LABORATORY DATA: White blood cells 3.4, hemoglobin 11.8, hematocrit 35.4, and platelets 127. Sodium 135, potassium 3.9, BUN 13, creatinine 0.6,and glucose 130. ASSESSMENT AND PLAN: Mrs. Jolie Diaz is a 82 years old female with iron deficiency anemia, abnormal liver function tests, chronic atrial fibrillation with apical thrombus treating with anticoagulation, dilated cardiomyopathy, history of hypertension, hypercholesterolemia. Gastric and deep venous thrombosis prophylaxis. Repeat labs. Review Dr. Rohith Keller's notes. We will followup. Ashley Spencer MD
[2017-05-11] MEDS: Levothyroxine 75 MCG TAB PO SCH (05:56)
--- NOTE | 2017-05-11 11:29 | PN ---
CARDIOLOGY FOLLOWUP DATE: 05/11/2017 SUBJECTIVE: The patient is asymptomatic. She is eating well. PHYSICAL EXAMINATION VITAL SIGNS: Stable. Blood pressure is 141/80. There are no orthostatic changes. NECK: Negative JVD. LUNGS: Without rales. HEART: S1 and S2. EXTREMITIES: Without edema. LABORATORY DATA: Laboratories were not drawn today. IMPRESSION 1. Chronic dizziness. 2. No cardiac cause of dizziness noted. 3. History of dilated cardiomyopathy. 4. History of apical thrombus. 5. Anemia. PLAN: Given these findings, the patient's symptoms are better off Norvasc. Would stay off Norvasc. From a cardiac perspective, the patient can be discharged. Rohith Keller MD
[2017-05-11 16:44] VITALS: BP 124/60; PULSE 81; RESP 18; TEMP 98.5
[2017-05-11 18:53] VITALS: O2SAT 98
--- NOTE | 2017-05-13 10:13 | PQF GENQUE ---
Dr. Spencer, This form is a permanent part of the medical record Clarification of your documentation is requested to better reflect the severity of illness and intensity of treatment of your patient. Indicators present : patient was admitted for syncope---what is the caused of syncope? [] Specify: [] [] Specify: [] [] Specify: [] CALL NEUROLOGIST .PL [] Specify: [] Location in the medical record that reflects the above clinical findings: [] Treatment Provided: [] PHYSICIAN'S RESPONSE Based on your medical judgment of the clinical indicators outlined above please clarify the following: [] Practitioner response [] If unable to determine, please check the box, sign and date. Present On Admission (POA) Indicator: [] Present at the time of admission [] Not present at the time of admission [] Clinically Undetermined In responding to this query, please exercise your independent professional judgment. The fact that a question is asked does not imply that any particular answer is desired or expected. Thank you for your clarification on this documentation. If you have any questions please call:[ ] * Thank you, [ ]GLOVER windmill mechanic SHUN
== END 2017-05-11 20:22 | disposition home or self-care (01) | DRG 312 ==
LOC: ED 11:43 → ERH 15:22 → 2RSO 22:16 → OBSVTOIN 05-09 21:15
PROVIDERS: ADMIT Internal Medicine; ATTEND Internal Medicine
DX: R55 Syncope and collapse (principal); I42.0 Dilated cardiomyopathy; I11.0 Hypertensive heart disease with heart failure; I50.9 Heart failure, unspecified; F03.90 Unspecified dementia, unspecified severity, without behavioral disturbance, psychotic disturbance, mood disturbance, and anxiety; I48.2 Chronic atrial fibrillation; I51.3 Intracardiac thrombosis, not elsewhere classified; F32.9 Major depressive disorder, single episode, unspecified; E03.9 Hypothyroidism, unspecified; R42 Dizziness and giddiness; D50.9 Iron deficiency anemia, unspecified; E78.00 Pure hypercholesterolemia, unspecified; M19.90 Unspecified osteoarthritis, unspecified site; E78.5 Hyperlipidemia, unspecified; D72.818 Other decreased white blood cell count; R73.9 Hyperglycemia, unspecified; Z86.73 Personal history of transient ischemic attack (TIA), and cerebral infarction without residual deficits; Z79.02 Long term (current) use of antithrombotics/antiplatelets

== ENCOUNTER 2017-07-05 23:20 | Inpatient (IN) | payer MEDICARE, MEDICAID ==
--- NOTE | 2017-07-06 00:02 | ED PDOC ---
Arrival/HPI - General Time Seen by Provider: 07/05/17 23:52 Historian: Family (Niece) - History of Present Illness Narrative History of Present Illness (Text): 07/06/17 00:02 Emily Dave is an 82 year old female, whose past medical history includes atrial fibrillation, CHF, hypertension, hypothyroidism, arthritis, and depression, who presents to the Emergency department accompanied by niece complaining of syncope and confusion. Niece states patient was feeling unwell today, became weak, and had a syncopal episode at home. Niece notes patient has a history of dementia but reports worsening confusion today. Patient has also been experiencing redness to her right eye. Limited HPI and ROS due to patient' s dementia. PMD: Dr. 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) Other/Comment: bilateral eye twitching, unrelated to cva - Renal Hx Renal Disorder: No - Endocrine/Metabolic Hx Endocrine Disorders: Yes Hx Hypothyroidism: Yes - Hematological/Oncological Hx Blood Disorders: No - Integumentary Hx Dermatological Disorder: No - Musculoskeletal/Rheumatological Hx Musculoskeletal Disorders: Yes Hx Arthritis: Yes (SJOGRENS SYNDROME) Hx Falls: Yes Hx Unsteady Gait: Yes (CANE) - Gastrointestinal Hx Gastrointestinal Disorders: Yes (GASTRITIS) - Genitourinary/Gynecological Hx Genitourinary Disorders: Yes Hx Urinary Tract Infection: Yes - Psychiatric Hx Psychophysiologic Disorder: Yes Hx Depression: Yes Hx Substance Use: No - Surgical History Other/Comment: Colonoscopy in 2011 - Anesthesia Hx Anesthesia Reactions: No Hx Malignant Hyperthermia: No Family/Social History - Physician Review Nursing Documentation Reviewed: Yes Family/Social History: Unknown Family HX Smoking Status: Never Smoked Hx Alcohol Use: No Hx Substance Use: No Allergies/Home Meds Allergies/Adverse Reactions: Allergies No Known Allergies Allergy (Verified 05/08/17 19:51) Home Medications: Home Meds Medication Instructions Recorded Confirmed Apixaban [Eliquis] 5 mg PO DAILY 05/08/17 07/06/17 Atorvastatin [Lipitor] 40 mg PO DAILY 05/08/17 07/06/17 Carvedilol [Coreg] 12.5 mg PO DAILY 05/08/17 07/06/17 Cevimeline HCl 30 mg PO DAILY 05/08/17 07/06/17 Levothyroxine [Synthroid] 50 mcg PO DAILY 05/08/17 07/06/17 cycloSPORINE [Restasis] 0.05 % OP DAILY 05/08/17 07/06/17 Memantine [Namenda] 5 mg PO BID 07/06/17 07/06/17 Review of Systems - Review of Systems Systems not reviewed;Unavailable: Dementia Constitutional: absent: Fevers Eyes: Other (+right eye redness) Cardiovascular: Syncope Neurological: Other (+confusion) Physical Exam Vital Signs Reviewed: Yes Vital Signs Temp Pulse Resp BP Pulse Ox 07/05/17 23:23 98.1 F 90 16 156/98 H 98 Temperature: Afebrile Blood Pressure: Normal Pulse: Regular Respiratory Rate: Normal Appearance: Positive for: Well-Appearing, Non-Toxic, Comfortable Pain Distress: None Mental Status: Positive for: other (Alert and oriented x2 (person/place)) - Systems Exam Head: Present: Atraumatic, Normocephalic Pupils: Present: PERRL Extroacular Muscles: Present: EOMI Conjunctiva: Present: Other (Right subconjunctival erythema with scanty purulent eyelid discharge) Mouth: Present: Moist Mucous Membranes Neck: Present: Normal Range of Motion Respiratory/Chest: Present: Clear to Auscultation, Good Air Exchange. No: Respiratory Distress, Accessory Muscle Use Cardiovascular: Present: Regular Rate and Rhythm, Normal S1, S2. No: Murmurs Abdomen: Present: Normal Bowel Sounds. No: Tenderness, Distention, Peritoneal Signs Upper Extremity: Present: Normal Inspection. No: Cyanosis, Edema Lower Extremity: Present: Normal Inspection. No: Edema Neurological: Present: GCS=15, CN II-XII Intact, Speech Normal Skin: Present: Warm, Dry, Normal Color. No: Rashes Psychiatric: Present: Alert, Oriented x 3, Normal Insight, Normal Concentration Medical Decision Making ED Course and Treatment: 07/06/17 00:02 Impression: 82 year old female brought in for syncope, confusion, and right eye redness. Differential Diagnosis included but are not limited to: near syncope vs. conjunctivitis Plan: -- CT Head w/o contrast -- EKG -- Chest X-ray -- Labs, cardiac enzymes -- Reassess and disposition Prior Visits: Notes and results from previous visits were reviewed. On 05/08/2017, pt was seen in the Emergency department for near-syncope and hypotension. Pt was admitted to the hospital for further evaluation. Progress Notes: Reviewed EKG, a fib at 87 bpm. Occasional PVC. Non-specific T wave changes. 07/06/17 02:17 Reviewed radiology, Chest X-ray shows no acute processes. CT Head shows: Brain: Jnpe-kf-ylmljtho atrophy. No intracranial hemorrhage. No mass. Mild-to- moderate encephalomalacia within LEFT frontal region. Multiple scattered foci of decreased attenuation within periventricular/subcortical white matter. No definite edema. Ventricles: No hydrocephalus. Bones/joints: No acute fracture. Soft tissues: Unremarkable. Vasculature: Atherosclerotic disease of intracranial arteries. Sinuses: Scattered minimal mucosal thickening. Mastoid air cells: Partial opacification of mastoids, stable. Orbits: Unremarkable as visualized. IMPRESSION: 1. Nonspecific white matter changes. Acute infarction may be CT occult within first 24 hours. If a focal deficit persists, consider followup CT or MRI for further evaluation. 2. Incidental/non-acute findings are described above. 07/06/17 02:[address] Roberts's service. Pt will go to Telemetry observation for syncope. chaplain resident notified. - Lab Interpretations Lab Results: 07/06/17 00:55 07/06/17 00:55 Lab Results 07/06/17 00:55: WBC 4.5 D, RBC 3.70, Hgb 11.1 L, Hct 32.7 L, MCV 88.4, MCH 30.0 , MCHC 33.9, RDW 14.8 H, Plt Count 125, MPV 12.0 H 07/06/17 00:55: Sodium 138, Potassium 4.3, Chloride 102, Carbon Dioxide 27, Anion Gap 13, BUN 21, Creatinine 0.7, Est GFR ( Amer) > 60, Est GFR (Non- Af Amer) > 60, Random Glucose 105, Calcium 8.9, Total Bilirubin 0.5, AST 77 H, ALT 48, Alkaline Phosphatase 66, Lactate Dehydrogenase 557, Total Creatine Kinase 37, Troponin I < 0.01, Total Protein 7.9, Albumin 3.7, Globulin 4.3, Albumin/Globulin Ratio 0.9 L 07/06/17 00:55: PT 11.2, INR 1.04, APTT 27.3 - RAD Interpretation Radiology Orders: 07/06/17 00:18 HEAD W/O CONTRAST [CT] Stat 07/06/17 00:19 CHEST PORTABLE [RAD] Stat - EKG Interpretation Interpreted by ED Physician: Yes Type: 12 lead EKG - Medication Orders Current Medication Orders: Apixaban (Eliquis) 5 mg PO DAILY KELLY PRN Reason: Protocol Aspirin (Ecotrin) 81 mg PO DAILY KELLY Atorvastatin Calcium (Lipitor) 40 mg PO DAILY KELLY Carvedilol (Coreg) 12.5 mg PO DAILY KELLY Cyclosporine (Restasis) 0 ea OU DAILY KELLY Levothyroxine Sodium (Synthroid) 50 mcg PO ACB KELLY Memantine (Namenda) 5 mg PO BID KELLY Non-Formulary Medication (Cevimeline Hcl [Cevimeline Hcl]) 30 mg PO DAILY KELLY Pantoprazole Sodium (Protonix Ec Tab) 40 mg PO 0600 KELLY Discontinued Medications Tobramycin Sulfate (Tobrex 0.3% Ophth Oint) 0 appl OD ONCE ONE Stop: 07/06/17 02:45 - Scribe Statement The provider has reviewed the documentation as recorded by the Richie Cordova Provider Scribe Attestation: All medical record entries made by the Reynaibtatiana were at my direction and personally dictated by me. I have reviewed the chart and agree that the record accurately reflects my personal performance of the history, physical exam, medical decision making, and the department course for this patient. I have also personally directed, reviewed, and agree with the discharge instructions and disposition. Disposition/Present on Arrival - Present on Arrival Any Indicators Present on Arrival: No History of DVT/PE: No History of Uncontrolled Diabetes: No Urinary Catheter: No History of Decub. Ulcer: No History Surgical Site Infection Following: None - Disposition Have Diagnosis and Disposition been Completed?: Yes Diagnosis: Syncope, Conjunctivitis, Dementia Disposition: HOSPITALIZED Disposition Time: 02:49 Patient Plan: Observation Patient Problems: Current Active Problems Problem Status Onset Syncope Acute Condition: STABLE
[2017-07-06 01:04] LABS: HEMATOCRIT 32.7 % (36.0-48.0); MEAN CELL VOLUME 88.4 fl (80.0-105.0); MEAN CORPUSCULAR HGB CONC 33.9 g/dl (31.0-37.0); RED CELL DISTRIBUTION WIDTH 14.8 % (11.5-14.5); WHITE BLOOD COUNT 4.5 10^3/ul (4.5-11.0)
[2017-07-06 01:17] LABS: INR 1.04 (0.93-1.08); PARTIAL THROMBOPLASTIN TIME 27.3 Seconds (23.7-30.8)
[2017-07-06 01:24] LABS: ALB/GLOB RATIO 0.9 (1.1-1.8); ALKALINE PHOSPHATASE 66 U/L (38-126); ALT/SGPT 48 U/L (7-56); AST/SGOT 77 U/L (14-36); BILIRUBIN,TOTAL 0.5 mg/dL (0.2-1.3); BLOOD UREA NITROGEN 21 mg/dL (7-21); CALCIUM 8.9 mg/dL (8.4-10.5); CARBON DIOXIDE 27 mmol/L (21-33); CHLORIDE 102 mmol/L (98-107); GFR AFRICAN-AMERICAN > 60; GLUCOSE,RANDOM 105 mg/dL (70-110); POTASSIUM 4.3 mmol/L (3.6-5.0); SODIUM 138 mmol/L (132-148); TOTAL PROTEIN 7.9 g/dL (5.8-8.3)
[2017-07-06 01:39] LABS: TROPONIN I < 0.01 ng/mL
--- NOTE | 2017-07-06 02:17 | CT ---
EXAM: CT Head Without Intravenous Contrast CLINICAL HISTORY: 82 years old, female; Signs and symptoms; Syncope and collapse TECHNIQUE: Axial computed tomography images of the head/brain without intravenous contrast. All CT scans at this facility use one or more dose reduction techniques, viz.: automated exposure control; ma/kV adjustment per patient size (including targeted exams where dose is matched to indication; i.e. head); or iterative reconstruction technique. COMPARISON: CT - HEAD W/O CONTRAST 05/08/2017 5:36:47 PM FINDINGS: Brain: Amcq-io-nsyhjetg atrophy. No intracranial hemorrhage. No mass. Dynw-gd-yxmikfbe encephalomalacia within LEFT frontal region. Multiple scattered foci of decreased attenuation within periventricular/subcortical white matter. No definite edema. Ventricles: No hydrocephalus. Bones/joints: No acute fracture. Soft tissues: Unremarkable. Vasculature: Atherosclerotic disease of intracranial arteries. Sinuses: Scattered minimal mucosal thickening. Mastoid air cells: Partial opacification of mastoids, stable. Orbits: Unremarkable as visualized. IMPRESSION: 1. Nonspecific white matter changes. Acute infarction may be CT occult within first 24 hours. If a focal deficit persists, consider followup CT or MRI for further evaluation. 2. Incidental/non-acute findings are described above.
[2017-07-06] MEDS ORDERED: Tobramycin 0.3% OPH OINT OD ONE (02:44)
--- NOTE | 2017-07-06 05:57 | CP.PCM.HP ---
<Rachel De Guzman - Last Filed: 07/06/17 05:50> History of Present Illness - History of Present Illness History of Present Illness: 82 F with PMHx of CAD, Afib on coumadin, CHF Ef 30%, HLD, HTN, Hypothyroidism, Glaucoma, Sjogrens Syndrome, Depression, presenting to the [facility] [place] ED with complaints of syncopal episodes as described by the patients marielyjose e. Pt Neice stated that the pt has been experiencing states of AMS with a witnessed syncopal episode while at home yesterday. Pt also was noted to have redness and conjunctival injection to the red eye. Pt is a poor historian as she is demented and unable to provide HPI or ROS. PMHx: CAD, CVA, Afib on coumadin, CHF Ef 30%, HLD, HTN, Hypothyroidism, Glaucoma , Sjogrens Syndrome, Depression PSHx: Colonoscopy SHx: Denied ETOH/Tobacco/Illicits. Ambulates with a cane FamHx: Noncontributory Allergies: NKDA Meds: MAR reviewed PMD: Dr. Roberts Present on Admission - Present on Admission Any Indicators Present on Admission: No Review of Systems - Review of Systems Systems not reviewed;Unavailable: Altered Mental Status Past Patient History - Infectious Disease Hx of Infectious Diseases: None - Past Social History Smoking Status: Never Smoked - CARDIAC Hx Cardiac Disorders: Yes (CAD) Hx Cardia Arrhythmia: Yes (afib on coumadin at home) Hx Congestive Heart Failure: Yes Hx Hypertension: Yes - PULMONARY Hx Respiratory Disorders: No - NEUROLOGICAL Hx Neurological Disorder: Yes HX Cerebrovascular Accident: Yes (November 2016) Hx Dizziness: Yes (SYNCOPE) - HEENT Hx HEENT Problems: Yes 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) Other/Comment: bilateral eye twitching, unrelated to cva - RENAL Hx Chronic Kidney Disease: No - ENDOCRINE/METABOLIC Hx Endocrine Disorders: Yes Hx Hypothyroidism: Yes - HEMATOLOGICAL/ONCOLOGICAL Hx Blood Disorders: No - INTEGUMENTARY Hx Dermatological Problems: No - MUSCULOSKELETAL/RHEUMATOLOGICAL Hx Musculoskeletal Disorders: Yes Hx Arthritis: Yes (SJOGRENS SYNDROME) Hx Falls: Yes Hx Unsteady Gait: Yes (CANE) - GASTROINTESTINAL Hx Gastrointestinal Disorders: Yes (GASTRITIS) - GENITOURINARY/GYNECOLOGICAL Hx Genitourinary Disorders: Yes Hx Urinary Tract Infection: Yes - PSYCHIATRIC Hx Psychophysiologic Disorder: Yes Hx Depression: Yes Hx Substance Use: No - SURGICAL HISTORY Other/Comment: Colonoscopy in 2012 - ANESTHESIA Hx Anesthesia Reactions: No Hx Malignant Hyperthermia: No Meds Allergies/Adverse Reactions: Allergies Allergy/AdvReac Type Severity Reaction Status Date / Time No Known Allergies Allergy Verified 05/08/17 19:51 Physical Exam - Constitutional Appears: No Acute Distress - Head Exam Head Exam: ATRAUMATIC, NORMAL INSPECTION, NORMOCEPHALIC - Eye Exam Eye Exam: Conjunctival injection, EOMI, Normal appearance, PERRL. absent: Periorbital swelling, Periorbital tenderness Pupil Exam: NORMAL ACCOMODATION, PERRL - ENT Exam ENT Exam: Mucous Membranes Moist, Normal Exam - Respiratory Exam Respiratory Exam: Clear to Auscultation Bilateral, NORMAL BREATHING PATTERN - Cardiovascular Exam Cardiovascular Exam: REGULAR RHYTHM, +S1, +S2 - GI/Abdominal Exam GI & Abdominal Exam: Normal Bowel Sounds, Soft. absent: Tenderness - Extremities Exam Extremities exam: Positive for: normal inspection - Neurological Exam Neurological exam: Abnormal Gait, Altered, CN II-XII Intact - Psychiatric Exam Psychiatric exam: Normal Affect, Normal Mood - Skin Skin Exam: Dry, Intact, Normal Color, Warm Results - Vital Signs Recent Vital Signs: Last Vital Signs Temp 98.1 F 07/05/17 23:23 Pulse 90 07/05/17 23:23 Resp 16 07/05/17 23:23 BP 156/98 H 07/05/17 23:23 Pulse Ox 98 07/05/17 23:23 - Labs Result Diagrams: 07/06/17 00:55 07/06/17 00:55 Assessment & Plan - Assessment and Plan (Free Text) Assessment: 82 F with PMHx of CAD, Afib on Eliquis, CHF Ef 30%, HLD, HTN, Hypothyroidism, Glaucoma, Sjogrens Syndrome, Depression, admitted for evaluation of syncopal episode. Syncope vasovagal vs anemia vs cardiac vs neuro origin no signs of dehydration TSH wnl EKG Afib rate controlled no ST changes, Serial EKG Troponins Negative, Continue to trend asa, lipitor, elaquis CTH: Nonspecific white matter changes, Acute infarction may be CT occult in first 24 hr, Fu with MRI if Focal deficits persists Neurology, Dr. Stern Consulted Rt Eye Conunctivitis Hx of Sjogrens Cyclosporine Eye drops Tobramycin eye drops Afib Stable Continue eliquis fu serial EKG continue to monitor CHF EF 30% most recent echo strict I&Os daily weights lasix prn HTN Continue home meds Stable continue to monitor HLD continue lipitor fu lipid panel Hypothyroidism Continue synthroid Sjogrens Syndrome Continue Cevimeline Dementia Continue Namenda Neurology Consulted GI / DVT ppx reviewed Seen reviewed and discussed with attending <Odilon Valerio - Last Filed: 07/06/17 19:12> Results - Vital Signs Recent Vital Signs: Last Vital Signs Temp 98.8 F 07/06/17 16:38 Pulse 96 H 07/06/17 18:00 Resp 20 07/06/17 16:38 BP 115/67 07/06/17 16:38 Pulse Ox 99 07/06/17 06:39 - Labs Result Diagrams: 07/06/17 06:00 07/06/17 06:00 Labs: Laboratory Results - last 24 hr 07/06/17 07/06/17 07/06/17 06:00 06:00 06:00 WBC 3.3 L D RBC 3.92 Hgb 11.4 L Hct 34.4 L MCV 87.8 MCH 29.1 MCHC 33.1 RDW 15.0 H Plt Count 124 MPV 11.7 H Gran % 52.1 Lymph % (Auto) 37.9 H Mcdonald % (Auto) 8.8 H Eos % (Auto) 1.2 L Baso % (Auto) 0.0 Gran # 1.72 Lymph # 1.3 Mcdonald # 0.3 Eos # 0.0 Baso # 0.00 Sodium 138 Potassium 3.6 Chloride 102 Carbon Dioxide 26 Anion Gap 14 BUN 17 Creatinine 0.5 L Est GFR ( Amer) > 60 Est GFR (Non-Af Amer) > 60 Random Glucose 87 Calcium 8.7 Phosphorus 3.9 Magnesium 1.8 Iron 63 TIBC 331 % Saturation 19 L Ferritin Total Bilirubin 0.5 AST 65 H ALT 51 Alkaline Phosphatase 79 NT-Pro-B Natriuret Pep 2010 H Total Protein 8.1 Albumin 3.7 Globulin 4.4 Albumin/Globulin Ratio 0.8 L Triglycerides 85 Cholesterol 112 L LDL Cholesterol Direct 64 HDL Cholesterol 30 Vitamin B12 Folate 07/06/17 06:00 WBC RBC Hgb Hct MCV MCH MCHC RDW Plt Count MPV Gran % Lymph % (Auto) Mcdonald % (Auto) Eos % (Auto) Baso % (Auto) Gran # Lymph # Mcdonald # Eos # Baso # Sodium Potassium Chloride Carbon Dioxide Anion Gap BUN Creatinine Est GFR ( Amer) Est GFR (Non-Af Amer) Random Glucose Calcium Phosphorus Magnesium Iron TIBC % Saturation Ferritin 26.1 Total Bilirubin AST ALT Alkaline Phosphatase NT-Pro-B Natriuret Pep Total Protein Albumin Globulin Albumin/Globulin Ratio Triglycerides Cholesterol LDL Cholesterol Direct HDL Cholesterol Vitamin B12 535 Folate 8.9 Assessment & Plan - Assessment and Plan (Free Text) Assessment: Covering Internal Medicine for Dr. Roberts: Case reviewed with resident and patient examined independently. Syncopal episode Neurology consult. CAD and CHF with EF of 30% - monitor. History of Sjogren's treated with Cevimeline. Agree with above.
[2017-07-06 07:02] LABS: EOS % 1.2 % (1.5-5.0); GRAN # 1.72 (1.4-6.5); GRAN % 52.1 % (50.0-68.0); HEMATOCRIT 34.4 % (36.0-48.0); LYMPH # 1.3 (1.2-3.4); LYMPH % 37.9 % (22.0-35.0); MEAN CELL VOLUME 87.8 fl (80.0-105.0); MEAN CORPUSCULAR HEMOGLOBIN 29.1 pg (25.0-35.0); MEAN CORPUSCULAR HGB CONC 33.1 g/dl (31.0-37.0); MEAN PLATELET VOLUME 11.7 fl (7.0-11.0); MONO # 0.3 (0.1-0.6); MONO % 8.8 % (1.0-6.0); WHITE BLOOD COUNT 3.3 10^3/ul (4.5-11.0)
[2017-07-06 07:09] LABS: ALB/GLOB RATIO 0.8 (1.1-1.8); ALKALINE PHOSPHATASE 79 U/L (38-126); ALT/SGPT 51 U/L (7-56); AST/SGOT 65 U/L (14-36); BILIRUBIN,TOTAL 0.5 mg/dL (0.2-1.3); BLOOD UREA NITROGEN 17 mg/dL (7-21); CALCIUM 8.7 mg/dL (8.4-10.5); CARBON DIOXIDE 26 mmol/L (21-33); CHLORIDE 102 mmol/L (98-107); CHOLESTEROL 112 mg/dL (130-200); GFR AFRICAN-AMERICAN > 60; GLUCOSE,RANDOM 87 mg/dL (70-110); MAGNESIUM 1.8 mg/dL (1.7-2.2); PHOSPHOROUS 3.9 mg/dL (2.5-4.5); POTASSIUM 3.6 mmol/L (3.6-5.0); SODIUM 138 mmol/L (132-148); TOTAL PROTEIN 8.1 g/dL (5.8-8.3)
[2017-07-06] MEDS: Levothyroxine 50 MCG TAB PO SCH (07:32)
[2017-07-06 07:41] LABS: IRON 63 ug/dL (45-180)
[2017-07-06 07:51] VITALS: BMI 21.2
[2017-07-06] MEDS: CEVIMELINE HCL 30 MG PO SCH (09:05)
[2017-07-06] MEDS: cycloSPORINE 0.05 % Opth Emulsion UD OU SCH (09:14)
--- NOTE | 2017-07-06 11:01 | RAD ---
HISTORY: Syncope. Technique: Single view portable semi erect @ 01:20 COMPARISON: 12/08/2015 and 05/08/2017 FINDINGS: LUNGS: Stable nodule/mass right lower lobe. This measures 15.4 mm. PLEURA: No significant pleural effusion identified, no pneumothorax apparent. CARDIOVASCULAR: Normal. OSSEOUS STRUCTURES: No significant abnormalities. VISUALIZED UPPER ABDOMEN: Normal. OTHER FINDINGS: None. IMPRESSION: No active disease. No significant interval change compared to the prior examination(s). Please note: No preliminary report/ innterpretation of this examination provided by emergency department personnel.
[2017-07-06 12:38] LABS: FOLATE 8.9 ng/mL
--- NOTE | 2017-07-06 19:44 | CARD ---
APPROVED REPORT EKG Measurement Heart [id number] <Conclusion> Atrial fibrillation with premature ventricular or aberrantly conducted complexes Rightward axis Nonspecific T wave abnormality, probably digitalis effect Abnormal ECG
--- NOTE | 2017-07-07 01:12 | CON ---
DATE: HISTORY OF PRESENT ILLNESS: This is an 82-year-old white female with a past medical history of coronary artery disease, atrial fibrillation, CHF, hypertension, hypothyroidism, Sjogren syndrome, and depression came into the emergency room with a syncopal episode. The patient's niece also stated that the patient has an altered mental status and witnessed the syncopal episode at home. PAST MEDICAL HISTORY: Coronary artery disease, CVA, atrial fibrillation on Coumadin, hypertension, hypothyroidism, Sjogren syndrome, and depression. PAST SURGICAL HISTORY: Status post colonoscopy. SOCIAL HISTORY: She does not smoke and does not drink. ALLERGIES: NO KNOWN DRUG ALLERGIES. PHYSICAL EXAMINATION: HEENT: Normocephalic and atraumatic. NECK: Supple. NEUROLOGIC: Alert, awake, and oriented to self and place. Cranial nerves II to XII are tested. Pupils reactive. EOM intact. Visual carmona full. No facial asymmetry. Tongue midline. Motor examination, moves all the extremities equally. Tone normal. Deep tendon reflexes 1+. Both plantars are downgoing. Sensory appears intact. Cerebellar, gait deferred. LABORATORY DATA: CAT scan of the head was done, which was negative. ASSESSMENT: The patient also has dementia for which she is taking Namenda. Continue present management. We will follow up. Santosh Stern MD
[2017-07-07] MEDS: Pantoprazole 40 mg EC Tab PO SCH (05:44)
[2017-07-07 06:22] LABS: EOS # 0.1 (0.0-0.7); EOS % 1.9 % (1.5-5.0); GRAN # 2.19 (1.4-6.5); HEMATOCRIT 34.7 % (36.0-48.0); LYMPH # 1.1 (1.2-3.4); LYMPH % 30.5 % (22.0-35.0); MEAN CELL VOLUME 87.6 fl (80.0-105.0); MEAN CORPUSCULAR HEMOGLOBIN 29.3 pg (25.0-35.0); MEAN CORPUSCULAR HGB CONC 33.4 g/dl (31.0-37.0); MEAN PLATELET VOLUME 12.3 fl (7.0-11.0); MONO # 0.3 (0.1-0.6); MONO % 8.6 % (1.0-6.0); WHITE BLOOD COUNT 3.7 10^3/ul (4.5-11.0)
[2017-07-07 06:43] LABS: ALB/GLOB RATIO 0.8 (1.1-1.8); ALKALINE PHOSPHATASE 81 U/L (38-126); ALT/SGPT 46 U/L (7-56); AST/SGOT 62 U/L (14-36); BILIRUBIN,TOTAL 0.9 mg/dL (0.2-1.3); BLOOD UREA NITROGEN 14 mg/dL (7-21); CALCIUM 8.8 mg/dL (8.4-10.5); CARBON DIOXIDE 28 mmol/L (21-33); CHLORIDE 101 mmol/L (95-110); GFR AFRICAN-AMERICAN > 60; GLUCOSE,RANDOM 84 mg/dL (70-110); MAGNESIUM 1.8 mg/dL (1.7-2.2); POTASSIUM 3.8 mmol/L (3.6-5.0); SODIUM 138 mmol/L (132-148); TOTAL PROTEIN 8.3 g/dL (5.8-8.3)
[2017-07-07] MEDS: Levothyroxine 50 MCG TAB PO SCH (08:42)
[2017-07-07] MEDS: CEVIMELINE HCL 30 MG PO SCH (09:37)
[2017-07-07] MEDS: cycloSPORINE 0.05 % Opth Emulsion UD OU SCH (09:37)
--- NOTE | 2017-07-07 11:03 | CP.PCM.PN ---
<Chloe Medina - Last Filed: 07/07/17 16:07> Subjective - Date & Time of Evaluation Date of Evaluation: 07/07/17 Time of Evaluation: 10:57 - Subjective Subjective: Neurology Progress Note for Aiyana Durán PGY2 Patient seen and examined at bedside. As per nursing, there were no acute overnight events. Patient is resting comfortably in bed. She reports she feels dizzy, but denies vision changes, numbness/tingling, CP, fever or chills. Patient does have underlying dementia. She is alert to person and place, but not time. Objective - Vital Signs/Intake and Output Vital Signs (last 24 hours): Temp Pulse Resp BP Pulse Ox 97.4 F L 111 H 19 137/90 98 07/07/17 06:00 07/07/17 10:00 07/07/17 06:00 07/07/17 09:35 07/07/17 06:00 Intake and Output: 07/07/17 07/07/17 06:59 18:59 Intake Total 120 Balance 120 - Medications Medications: Current Medications Apixaban (Eliquis) 5 mg PO DAILY [facility] PRN Reason: Protocol Last Admin: 07/07/17 09:35 Dose: 5 mg Aspirin (Ecotrin) 81 mg PO DAILY [facility] Last Admin: 07/07/17 09:35 Dose: 81 mg Atorvastatin Calcium (Lipitor) 40 mg PO DAILY [facility] Last Admin: 07/07/17 09:35 Dose: 40 mg Carvedilol (Coreg) 12.5 mg PO DAILY [facility] Last Admin: 07/07/17 09:35 Dose: 12.5 mg Cyclosporine (Restasis) 0 ea OU DAILY [facility] Last Admin: 07/07/17 09:37 Dose: 1 ea Levothyroxine Sodium (Synthroid) 50 mcg PO ACB [facility] Last Admin: 07/07/17 08:42 Dose: 50 mcg Memantine (Namenda) 5 mg PO BID [facility] Last Admin: 07/07/17 09:34 Dose: 5 mg Non-Formulary Medication (Cevimeline Hcl [Cevimeline Hcl]) 30 mg PO DAILY [facility] Last Admin: 07/07/17 09:37 Dose: Not Given Pantoprazole Sodium (Protonix Ec Tab) 40 mg PO 0600 [facility] Last Admin: 07/07/17 05:44 Dose: 40 mg Tobramycin Sulfate (Tobrex 0.3% Ophth Oint) 1 appl OD Q4 [facility] - Labs Labs: 07/07/17 05:20 07/07/17 05:20 PT 11.2 Seconds (9.9-11.8) 07/06/17 00:55 INR 1.04 (0.93-1.08) 07/06/17 00:55 APTT 27.3 Seconds (23.7-30.8) 07/06/17 00:55 - Constitutional Appears: No Acute Distress - Head Exam Head Exam: ATRAUMATIC, NORMAL INSPECTION, NORMOCEPHALIC - Eye Exam Eye Exam: PERRL. absent: Normal appearance (purulent discharge from R eye) Pupil Exam: NORMAL ACCOMODATION, PERRL - ENT Exam ENT Exam: Mucous Membranes Moist - Neck Exam Neck Exam: Full ROM - Respiratory Exam Respiratory Exam: Clear to Ausculation Bilateral, NORMAL BREATHING PATTERN. absent: Rales, Rhonchi, Wheezes - Cardiovascular Exam Cardiovascular Exam: REGULAR RHYTHM, +S1, +S2. absent: Gallop, Rubs, Murmur - GI/Abdominal Exam GI & Abdominal Exam: Soft, Normal Bowel Sounds. absent: Rigid, Tenderness, Mass , Rebound - Extremities Exam Extremities Exam: Normal Inspection. absent: Calf Tenderness, Pedal Edema - Neurological Exam Neurological Exam: Alert, Awake, CN II-XII Intact. 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 Head CT was noted to be negative. Patient has been seen by Dr. Stern for these episodes in the past. She was last evaluated for syncope in 05/08/17. At the time EF was 30-35%, EEG showed mild bilateral cerebral dysfunction, but no seizure activity. Carotid dopplers in 11/2016 showed 20-39% stenosis bilaterally. Syncopal episode can be secondary to transient cerebral hypoperfusion from vasovagal episodes. Plan: - Will check orthostatics - Avoid sudden drops in BP - Continue ASA and Eliquis - Continue synthroid - Continue Namenda - Repeat carotid ordered by PMD No further neurological work up at this time. Patient can follow up as outpatient. Thank you for this consultation. Please re-consult if needed. Case seen, discussed and reviewed with Dr. Stern. Aiyana Medina PGY2 <Anam Stern - Last Filed: 07/07/17 16:26> Objective - Vital Signs/Intake and Output Vital Signs (last 24 hours): Temp Pulse Resp BP Pulse Ox 97.8 F 102 H 18 147/92 H 98 07/07/17 12:18 07/07/17 14:00 07/07/17 12:18 07/07/17 12:18 07/07/17 06:00 Intake and Output: 07/07/17 07/07/17 06:59 18:59 Intake Total 120 240 Output Total 600 Balance 120 -360 - Medications Medications: Current Medications Apixaban (Eliquis) 5 mg PO DAILY [facility] PRN Reason: Protocol Last Admin: 07/07/17 09:35 Dose: 5 mg Aspirin (Ecotrin) 81 mg PO DAILY [facility] Last Admin: 07/07/17 09:35 Dose: 81 mg Atorvastatin Calcium (Lipitor) 40 mg PO DAILY [facility] Last Admin: 07/07/17 09:35 Dose: 40 mg Carvedilol (Coreg) 12.5 mg PO DAILY [facility] Last Admin: 07/07/17 09:35 Dose: 12.5 mg Cyclosporine (Restasis) 0 ea OU DAILY [facility] Last Admin: 07/07/17 09:37 Dose: 1 ea Levothyroxine Sodium (Synthroid) 50 mcg PO ACB [facility] Last Admin: 07/07/17 08:42 Dose: 50 mcg Memantine (Namenda) 5 mg PO BID [facility] Last Admin: 07/07/17 09:34 Dose: 5 mg Non-Formulary Medication (Cevimeline Hcl [Cevimeline Hcl]) 30 mg PO DAILY [facility] Last Admin: 07/07/17 09:37 Dose: Not Given Pantoprazole Sodium (Protonix Ec Tab) 40 mg PO 0600 [facility] Last Admin: 07/07/17 05:44 Dose: 40 mg Tobramycin Sulfate (Tobrex 0.3% Ophth Oint) 1 appl OD Q4 [facility] Last Admin: 07/07/17 13:14 Dose: 1 applic - Labs Labs: 07/07/17 05:20 07/07/17 05:20 PT 11.2 Seconds (9.9-11.8) 07/06/17 00:55 INR 1.04 (0.93-1.08) 07/06/17 00:55 APTT 27.3 Seconds (23.7-30.8) 07/06/17 00:55 Attending/Attestation - Attestation I have personally seen and examined this patient.: Yes I have fully participated in the care of the patient.: Yes I have reviewed all pertinent clinical information, including history, physical exam and plan: Yes
[2017-07-07] MEDS: Tobramycin 0.3% OPH OINT OD SCH ×3 (13:14→19:48)
--- NOTE | 2017-07-07 15:35 | CP.PCM.DIS ---
<Maria FernandaAlexey - Last Filed: 07/07/17 15:35> Provider - Provider Date of Admission: 07/06/17 02:46 Attending physician: Oral Pink MD Primary care physician: Maynor Roberts MD Time Spent in preparation of Discharge (in minutes): 70 Hospital Course - Lab Results Lab Results: Most Recent Lab Values WBC 3.7 10^3/ul (4.5-11.0) L 07/07/17 05:20 RBC 3.96 10^6/uL (3.5-6.1) 07/07/17 05:20 Hgb 11.6 g/dL (12.0-16.0) L 07/07/17 05:20 Hct 34.7 % (36.0-48.0) L 07/07/17 05:20 MCV 87.6 fl (80.0-105.0) 07/07/17 05:20 MCH 29.3 pg (25.0-35.0) 07/07/17 05:20 MCHC 33.4 g/dl (31.0-37.0) 07/07/17 05:20 RDW 15.0 % (11.5-14.5) H 07/07/17 05:20 Plt Count 130 10^3/uL (120.0-450.0) 07/07/17 05:20 MPV 12.3 fl (7.0-11.0) H 07/07/17 05:20 Gran % 59.0 % (50.0-68.0) 07/07/17 05:20 Lymph % (Auto) 30.5 % (22.0-35.0) 07/07/17 05:20 Bracken % (Auto) 8.6 % (1.0-6.0) H 07/07/17 05:20 Eos % (Auto) 1.9 % (1.5-5.0) 07/07/17 05:20 Baso % (Auto) 0.0 % (0.0-3.0) 07/07/17 05:20 Gran # 2.19 (1.4-6.5) 07/07/17 05:20 Lymph # 1.1 (1.2-3.4) L 07/07/17 05:20 Bracken # 0.3 (0.1-0.6) 07/07/17 05:20 Eos # 0.1 (0.0-0.7) 07/07/17 05:20 Baso # 0.00 K/mm3 (0.0-2.0) 07/07/17 05:20 PT 11.2 Seconds (9.9-11.8) 07/06/17 00:55 INR 1.04 (0.93-1.08) 07/06/17 00:55 APTT 27.3 Seconds (23.7-30.8) 07/06/17 00:55 Sodium 138 mmol/L (132-148) 07/07/17 05:20 Potassium 3.8 mmol/L (3.6-5.0) 07/07/17 05:20 Chloride 101 mmol/L (95-110) 07/07/17 05:20 Carbon Dioxide 28 mmol/L (21-33) 07/07/17 05:20 Anion Gap 13 (10-20) 07/07/17 05:20 BUN 14 mg/dL (7-21) 07/07/17 05:20 Creatinine 0.5 mg/dL (0.7-1.2) L 07/07/17 05:20 Est GFR ( Amer) > 60 07/07/17 05:20 Est GFR (Non-Af Amer) > 60 07/07/17 05:20 Random Glucose 84 mg/dL (70-110) 07/07/17 05:20 Calcium 8.8 mg/dL (8.4-10.5) 07/07/17 05:20 Phosphorus 4.0 mg/dL (2.5-4.5) 07/07/17 05:20 Magnesium 1.8 mg/dL (1.7-2.2) 07/07/17 05:20 Iron 63 ug/dL (45-180) 07/06/17 06:00 TIBC 331 ug/dL (265-497) 07/06/17 06:00 % Saturation 19 % (20-55) L 07/06/17 06:00 Ferritin 26.1 ng/mL 07/06/17 06:00 Total Bilirubin 0.9 mg/dL (0.2-1.3) 07/07/17 05:20 AST 62 U/L (14-36) H 07/07/17 05:20 ALT 46 U/L (7-56) 07/07/17 05:20 Alkaline Phosphatase 81 U/L (38-126) 07/07/17 05:20 Lactate Dehydrogenase 557 U/L (333-699) 07/06/17 00:55 Total Creatine Kinase 37 U/L (35-230) 07/06/17 00:55 Troponin I < 0.01 ng/mL 07/07/17 14:05 NT-Pro-B Natriuret Pep 2010 pg/mL (0-450) H 07/06/17 06:00 Total Protein 8.3 g/dL (5.8-8.3) 07/07/17 05:20 Albumin 3.8 g/dL (3.0-4.8) 07/07/17 05:20 Globulin 4.5 gm/dL 07/07/17 05:20 Albumin/Globulin Ratio 0.8 (1.1-1.8) L 07/07/17 05:20 Triglycerides 85 mg/dL (35-160) 07/06/17 06:00 Cholesterol 112 mg/dL (130-200) L 07/06/17 06:00 LDL Cholesterol Direct 64 mg/dL (0-129) 07/06/17 06:00 HDL Cholesterol 30 mg/dL (29-60) 07/06/17 06:00 Vitamin B12 535 pg/mL (239-931) 07/06/17 06:00 Folate 8.9 ng/mL 07/06/17 06:00 - Hospital Course Hospital Course: 82 F with PMHx of CAD, Afib on coumadin, CHF Ef 30%, HLD, HTN, Hypothyroidism, Glaucoma, Sjogrens Syndrome, Depression, presented to the [facility] with complaints of syncopal episodes as described by the patients nejose e. Pt Nejose e stated that the pt has been experiencing states of AMS with a witnessed syncopal episode while at home yesterday. Pt also was noted to have redness and conjunctival injection to the red eye. Pt is a poor historian as she is demented and unable to provide HPI or ROS. Patient was admitted and evaluated. Patients old records including her echo and carotid ultrasound were reviewed. Blood work was done. Neurology was consulted. CT head was done and was normal. Carotid duplex was ordered. SHe was started on her home medications. She was given medication for her eye (abx and for sjogrens ). Patients condition improved and she was alert. SHe was told to FU with PMD Dr. Roberts within 1 week, continue home meds as prescribed. COntinue the eye ointment for Rt Eye Conjunctivitis. SHe is also to FU with Neuro Dr. Stern or as per PMD, FU with Transportation Director as per PMD. Finally she is welcome to return to [facility] is symptoms change or worsen Discharge Exam - Head Exam Head Exam: ATRAUMATIC, NORMAL INSPECTION, NORMOCEPHALIC Discharge Plan - Follow Up Plan Condition: STABLE Disposition: TRANSF TO SNF Instructions: Syncope (DC), Conjunctivitis (GEN) Additional Instructions: Patient will be followed in subacute by physicians. Referrals: Maynor Roberts MD [Primary Care Provider] - Merrick Bradley MD [Staff Provider] - <Maynor Roberts - Last Filed: 07/11/17 18:21> Provider - Provider Date of Admission: 07/07/17 17:07 Attending physician: Oral Pink MD Primary care physician: Maynor Roberts MD Hospital Course - Lab Results Lab Results: Most Recent Lab Values WBC 3.4 10^3/ul (4.5-11.0) L 07/10/17 10:16 RBC 3.80 10^6/uL (3.5-6.1) 07/10/17 10:16 Hgb 11.2 g/dL (12.0-16.0) L 07/10/17 10:16 Hct 33.4 % (36.0-48.0) L 07/10/17 10:16 MCV 87.9 fl (80.0-105.0) 07/10/17 10:16 MCH 29.5 pg (25.0-35.0) 07/10/17 10:16 MCHC 33.5 g/dl (31.0-37.0) 07/10/17 10:16 RDW 14.7 % (11.5-14.5) H 07/10/17 10:16 Plt Count 113 10^3/uL (120.0-450.0) L 07/10/17 10:16 MPV 11.5 fl (7.0-11.0) H 07/10/17 10:16 Gran % 60.5 % (50.0-68.0) 07/10/17 10:16 Lymph % (Auto) 27.0 % (22.0-35.0) 07/10/17 10:16 Bracken % (Auto) 9.5 % (1.0-6.0) H 07/10/17 10:16 Eos % (Auto) 2.7 % (1.5-5.0) 07/10/17 10:16 Baso % (Auto) 0.3 % (0.0-3.0) 07/10/17 10:16 Gran # 2.04 (1.4-6.5) 07/10/17 10:16 Lymph # 0.9 (1.2-3.4) L 07/10/17 10:16 Bracken # 0.3 (0.1-0.6) 07/10/17 10:16 Eos # 0.1 (0.0-0.7) 07/10/17 10:16 Baso # 0.01 K/mm3 (0.0-2.0) 07/10/17 10:16 PT 11.2 Seconds (9.9-11.8) 07/06/17 00:55 INR 1.04 (0.93-1.08) 07/06/17 00:55 APTT 27.3 Seconds (23.7-30.8) 07/06/17 00:55 Sodium 135 mmol/L (132-148) 07/10/17 10:16 Potassium 4.6 mmol/L (3.6-5.0) 07/10/17 10:16 Chloride 102 mmol/L (98-107) 07/10/17 10:16 Carbon Dioxide 24 mmol/L (21-33) 07/10/17 10:16 Anion Gap 14 (10-20) 07/10/17 10:16 BUN 23 mg/dL (7-21) H 07/10/17 10:16 Creatinine 0.6 mg/dL (0.7-1.2) L 07/10/17 10:16 Est GFR ( Amer) > 60 07/10/17 10:16 Est GFR (Non-Af Amer) > 60 07/10/17 10:16 POC Glucose (mg/dL) 88 mg/dL (65-110) 07/06/17 11:36 Random Glucose 88 mg/dL (70-110) 07/10/17 10:16 Calcium 8.6 mg/dL (8.4-10.5) 07/10/17 10:16 Phosphorus 3.7 mg/dL (2.5-4.5) 07/09/17 05:20 Magnesium 1.9 mg/dL (1.7-2.2) 07/09/17 05:20 Iron 63 ug/dL (45-180) 07/06/17 06:00 TIBC 331 ug/dL (265-497) 07/06/17 06:00 % Saturation 19 % (20-55) L 07/06/17 06:00 Ferritin 26.1 ng/mL 07/06/17 06:00 Total Bilirubin 0.7 mg/dL (0.2-1.3) 07/10/17 10:16 AST 63 U/L (14-36) H 07/10/17 10:16 ALT 46 U/L (7-56) 07/10/17 10:16 Alkaline Phosphatase 80 U/L (38-126) 07/10/17 10:16 Lactate Dehydrogenase 557 U/L (333-699) 07/06/17 00:55 Total Creatine Kinase 37 U/L (35-230) 07/06/17 00:55 Troponin I < 0.01 ng/mL 07/07/17 20:00 NT-Pro-B Natriuret Pep 2010 pg/mL (0-450) H 07/06/17 06:00 Total Protein 8.2 g/dL (5.8-8.3) 07/10/17 10:16 Albumin 3.7 g/dL (3.0-4.8) 07/10/17 10:16 Globulin 4.5 gm/dL 07/10/17 10:16 Albumin/Globulin Ratio 0.8 (1.1-1.8) L 07/10/17 10:16 Triglycerides 85 mg/dL (35-160) 07/06/17 06:00 Cholesterol 112 mg/dL (130-200) L 07/06/17 06:00 LDL Cholesterol Direct 64 mg/dL (0-129) 07/06/17 06:00 HDL Cholesterol 30 mg/dL (29-60) 07/06/17 06:00 Vitamin B12 535 pg/mL (239-931) 07/06/17 06:00 Folate 8.9 ng/mL 07/06/17 06:00 Attending/Attestation - Attestation I have personally seen and examined this patient.: Yes I have fully participated in the care of the patient.: Yes I have reviewed all pertinent clinical information, including history, physical exam and plan: Yes Notes (Text): 07/11/17 18:21 Medical record note made by the resident after discussion with my direction and input after the patient was personally seen and examined by me. I have reviewed the chart and agree that the record accurately reflects by personal performance of the history, physical exam, data review, and medical decision-making, in the course for the patient. I have also personally directed the plan of care.
--- NOTE | 2017-07-07 16:09 | US ---
PROCEDURE: Bilateral carotid artery duplex ultrasound HISTORY: Carotid stenosis PHYSICIAN(S): Rohith Rodriguez MD. TECHNIQUE: Duplex sonography and color-flow Doppler were used to evaluate the carotid bifurcations and limited segments of the vertebral arteries bilaterally. FINDINGS: There is mild to moderate irregular heterogeneous echogenic plaque noted at the carotid bifurcations bilaterally. The peak systolic velocity in the proximal right internal carotid artery is 49 cm/sec. This corresponds to a 20 to 39% proximal right ICA stenosis. Normal systolic velocities are noted in the proximal right external carotid artery. There is antegrade flow in the right vertebral artery. The peak systolic velocity in the proximal left internal carotid artery is 45 cm/sec. This corresponds to a 20 to 39% proximal left ICA stenosis. Normal systolic velocities are noted in the proximal left external carotid artery. There is antegrade flow in the dominant left vertebral artery. IMPRESSION: 1. Bilateral 20-39% proximal ICA stenoses. 2. Antegrade flow in both vertebral arteries.
--- NOTE | 2017-07-07 17:52 | CARD ---
APPROVED REPORT EXAM: Two-dimensional and M-mode echocardiogram with Doppler and color Doppler. INDICATION Syncope 2D DIMENSIONS Left Atrium (2D)5.1 (1.6-4.0cm)IVSd1.1 (0.7-1.1cm) LVDd3.9 (3.9-5.9cm)PWd1.1 (0.7-1.1cm) LVDs3.2 (2.5-4.0cm)FS (%) 16.8 % LVEF (%)35.7 (>50%) M-Mode DIMENSIONS Aortic Root3.10 (2.2-3.7cm)Aortic Cusp Exc.1.40 (1.5-2.0cm) Aortic Valve AoV Peak Qpjuihyz187.0cm/Masood Peak GR.8mmHg Mitral Valve E/A ratio0.0 TDI E/Lateral E'0.0E/Medial E'0.0 Pulmonary Valve PV Peak Yyttrwpk99.3cm/sPV Peak Grad.2mmHg Tricuspid Valve TR Peak [id number]/sRAP [id number] Peak Gr.38mmHg [id number] LEFT VENTRICLE The Left Ventricle is borderline dilated. There is normal left ventricular wall thickness. The systolic function is moderately impaired.EF-30-35% There is severe hypokinesis in the apical anterior wall. Pt was at times a flutter during Echo. Healed Apical thrombus noted There is no ventricular septal defect visualized. There is no left ventricular aneurysm. There is no mass noted in the left ventricle. RIGHT VENTRICLE The right ventricle is normal size. There is normal right ventricular wall thickness. The right ventricular systolic function is normal. ATRIA The left atrium is moderately dilated. The right atrium size is normal. The interatrial septum is intact with no evidence for an atrial septal defect. AORTIC VALVE The aortic valve is thickened but opens well. There is trace aortic regurgitation. There is no aortic valvular stenosis. There is no aortic valvular vegetation. MITRAL VALVE The mitral valve is thickened but opens well. Mitral regurgitation is mild to moderate. There is no mitral valve stenosis. There is no evidence of mitral valve prolapse. TRICUSPID VALVE The tricuspid valve leaflets are thickened , but open well. There is mild to moderate tricuspid regurgitation.RVSP-48 mmof hg. There is no tricuspid valve stenosis. There is no tricuspid valve prolapse or vegetation. PULMONIC VALVE The pulmonary valve is normal in structure. There is trace pulmonic valvular regurgitation. There is no pulmonic valvular stenosis. GREAT VESSELS The aortic root is normal in size. The ascending aorta is normal in size. The pulmonary artery is normal. The IVC is normal in size and collapses >50% with inspiration. PERICARDIAL EFFUSION There is no pleural effusion. There is a trace pericardial effusion. <Conclusion> The Left Ventricle is borderline dilated. There is normal left ventricular wall thickness. The systolic function is moderately impaired.EF-30-35% There is severe hypokinesis in the apical anterior wall. Pt was at times a flutter during Echo. Healed Apical thrombus noted There is trace aortic regurgitation. Mitral regurgitation is mild to moderate. There is mild to moderate tricuspid regurgitation.RVSP-48 mmof hg. The pulmonary artery is normal. There is a trace pericardial effusion.
[2017-07-08] MEDS: Tobramycin 0.3% OPH OINT OD SCH ×2 (00:28→04:55)
[2017-07-08 06:45] LABS: BASO # 0.01 K/mm3 (0.0-2.0); BASO % 0.3 % (0.0-3.0); EOS # 0.1 (0.0-0.7); EOS % 2.6 % (1.5-5.0); GRAN # 2.07 (1.4-6.5); GRAN % 52.9 % (50.0-68.0); HEMATOCRIT 35.1 % (36.0-48.0); LYMPH # 1.3 (1.2-3.4); LYMPH % 33.2 % (22.0-35.0); MEAN CELL VOLUME 87.8 fl (80.0-105.0); MEAN PLATELET VOLUME 11.6 fl (7.0-11.0); MONO # 0.4 (0.1-0.6); RED CELL DISTRIBUTION WIDTH 14.8 % (11.5-14.5); WHITE BLOOD COUNT 3.9 10^3/ul (4.5-11.0)
[2017-07-08 06:52] LABS: ALB/GLOB RATIO 0.8 (1.1-1.8); ALKALINE PHOSPHATASE 80 U/L (38-126); ALT/SGPT 40 U/L (7-56); AST/SGOT 57 U/L (14-36); BILIRUBIN,TOTAL 0.9 mg/dL (0.2-1.3); BLOOD UREA NITROGEN 19 mg/dL (7-21); CALCIUM 8.6 mg/dL (8.4-10.5); CARBON DIOXIDE 25 mmol/L (21-33); CHLORIDE 103 mmol/L (98-107); GFR AFRICAN-AMERICAN > 60; GLUCOSE,RANDOM 80 mg/dL (70-110); MAGNESIUM 1.9 mg/dL (1.7-2.2); POTASSIUM 3.7 mmol/L (3.6-5.0); SODIUM 137 mmol/L (132-148); TOTAL PROTEIN 8.1 g/dL (5.8-8.3)
[2017-07-08] MEDS: Pantoprazole 40 mg EC Tab PO SCH ×2 (07:32→07:34)
[2017-07-08] MEDS: Levothyroxine 50 MCG TAB PO SCH (08:44)
[2017-07-08] MEDS: Erythromycin 0.5% Ophth Oint 1 APPLIC/3.5 G OU SCH ×4 (09:06→21:09)
[2017-07-08] MEDS: CEVIMELINE HCL 30 MG PO SCH (09:08)
[2017-07-08] MEDS: cycloSPORINE 0.05 % Opth Emulsion UD OU SCH (10:09)
--- NOTE | 2017-07-08 11:40 | CARD ---
APPROVED REPORT EKG Measurement Heart [id number] <Conclusion> Atrial flutter with variable conduction Nonspecific T wave abnormality, probably digitalis effect Abnormal ECG
--- NOTE | 2017-07-08 13:49 | CP.PCM.PN ---
Subjective - Date & Time of Evaluation Date of Evaluation: 07/08/17 Time of Evaluation: 06:00 - Subjective Subjective: Patient was seen and evaluated bedside. Patient was lying comfortably in bed. Patient stated she was feeling good. She did not have any acute events overnight. She denied any CP, SOB, F/N/V/, sore throat, abdominal pain, dizziness, lightheadedness, or any other complaints. Objective - Vital Signs/Intake and Output Vital Signs (last 24 hours): Temp Pulse Resp BP Pulse Ox 97.9 F 76 19 129/95 H 97 07/08/17 12:00 07/08/17 12:00 07/08/17 12:00 07/08/17 12:00 07/08/17 00:01 - Medications Medications: Current Medications Apixaban (Eliquis) 5 mg PO DAILY [facility] PRN Reason: Protocol Last Admin: 07/08/17 09:06 Dose: 5 mg Aspirin (Ecotrin) 81 mg PO DAILY [facility] Last Admin: 07/08/17 09:06 Dose: 81 mg Atorvastatin Calcium (Lipitor) 40 mg PO DAILY [facility] Last Admin: 07/08/17 09:06 Dose: 40 mg Carvedilol (Coreg) 12.5 mg PO DAILY [facility] Last Admin: 07/08/17 09:07 Dose: 12.5 mg Cyclosporine (Restasis) 0 ea OU DAILY [facility] Last Admin: 07/08/17 10:09 Dose: 1 ea Erythromycin (Erythromycin) 1 applic OU Q4 [facility] Last Admin: 07/08/17 09:06 Dose: 1 appl Levothyroxine Sodium (Synthroid) 50 mcg PO ACB [facility] Last Admin: 07/08/17 08:44 Dose: 50 mcg Losartan Potassium (Cozaar) 50 mg PO DAILY [facility] Last Admin: 07/08/17 11:23 Dose: 50 mg Memantine (Namenda) 5 mg PO BID [facility] Last Admin: 07/08/17 09:06 Dose: 5 mg Non-Formulary Medication (Cevimeline Hcl [Cevimeline Hcl]) 30 mg PO DAILY [facility] Last Admin: 07/08/17 09:08 Dose: Not Given Pantoprazole Sodium (Protonix Ec Tab) 40 mg PO 0600 [facility] Last Admin: 07/08/17 07:34 Dose: 40 mg - Labs Labs: 07/08/17 06:37 07/08/17 06:37 PT 11.2 Seconds (9.9-11.8) 07/06/17 00:55 INR 1.04 (0.93-1.08) 07/06/17 00:55 APTT 27.3 Seconds (23.7-30.8) 07/06/17 00:55 - Constitutional Appears: Non-toxic, No Acute Distress - Head Exam Head Exam: ATRAUMATIC, NORMAL INSPECTION - Eye Exam Eye Exam: Conjunctival injection, PERRL Additional comments: Right conjunctiva slightly erythemethous, still producing discharge. - ENT Exam ENT Exam: Normal Exam - Neck Exam Neck Exam: absent: Lymphadenopathy - Respiratory Exam Respiratory Exam: Clear to Ausculation Bilateral, NORMAL BREATHING PATTERN - Cardiovascular Exam Cardiovascular Exam: REGULAR RHYTHM, +S1, +S2 - GI/Abdominal Exam GI & Abdominal Exam: absent: Tenderness - Extremities Exam Extremities Exam: absent: Pedal Edema - Neurological Exam Neurological Exam: Alert, Awake - Psychiatric Exam Psychiatric exam: Normal Mood - Skin Skin Exam: Normal Color Assessment and Plan - Assessment and Plan (Free Text) Assessment: 82 F with PMHx of CAD, Afib on Eliquis, CHF Ef 30%, HLD, HTN, Hypothyroidism, Glaucoma, Sjogrens Syndrome, Depression, admitted for evaluation of syncopal episode. She is being worked up for syncope and treated for right eye conjunctivitis. Plan: 1. Syncope -vasovagal vs anemia vs cardiac vs neuro origin -no signs of dehydration -TSH wnl -EKG Afib rate controlled no ST changes, Serial EKG obtained -Troponins Negative x3 -asa, lipitor, elaquis continue -CTH: Nonspecific white matter changes, Acute infarction may be CT occult in first 24 hr, Fu with MRI if Focal deficits persists -Neurology, Dr. Stern Consulted- avoid drop in BP, continue current meds, possible follow as outpatient 2. Rt Eye Conunctivitis -Hx of Sjogrens -Cyclosporine Eye drops continued -Erythromycin eye ointment started 3. Afib -Continue eliquis -fu serial EKG -> A.flutter, episodic -Continue to monitor 4. CHF -EF 30-35% on 07/07/2017 -strict I&Os -daily weights -lasix prn -started on losartan 50 mg PO daily 5. HTN- chronic -Current BP: 129/95 -Continue home meds- -Stable -continue to monitor 6. HLD -continue Lipitor -07/06/2017 Cholesterol: 112 7. Hypothyroidism -Continue synthroid 8. Sjogrens Syndrome -Continue Cevimeline, cyclosporine 9. Dementia -Continue Namenda -PT eval for SVITLANA 10. GI / DVT ppx reviewed Case is being handled by social media campaign manager due to patients granddaughter no longer being able to care for patient at home.
[2017-07-09] MEDS: Erythromycin 0.5% Ophth Oint 1 APPLIC/3.5 G OU SCH ×6 (00:26→21:15)
[2017-07-09] MEDS: Pantoprazole 40 mg EC Tab PO SCH (05:47)
[2017-07-09 06:15] LABS: BASO # 0.01 K/mm3 (0.0-2.0); BASO % 0.3 % (0.0-3.0); EOS # 0.2 (0.0-0.7); EOS % 4.2 % (1.5-5.0); GRAN # 2.03 (1.4-6.5); GRAN % 56.5 % (50.0-68.0); HEMATOCRIT 34.7 % (36.0-48.0); LYMPH # 1.1 (1.2-3.4); LYMPH % 30.9 % (22.0-35.0); MEAN CELL VOLUME 87.6 fl (80.0-105.0); MEAN CORPUSCULAR HGB CONC 33.1 g/dl (31.0-37.0); MEAN PLATELET VOLUME 11.2 fl (7.0-11.0); MONO # 0.3 (0.1-0.6); MONO % 8.1 % (1.0-6.0); RED CELL DISTRIBUTION WIDTH 14.7 % (11.5-14.5); WHITE BLOOD COUNT 3.6 10^3/ul (4.5-11.0)
[2017-07-09 06:42] LABS: ALB/GLOB RATIO 0.8 (1.1-1.8); ALKALINE PHOSPHATASE 82 U/L (38-126); ALT/SGPT 43 U/L (7-56); AST/SGOT 61 U/L (14-36); BILIRUBIN,TOTAL 0.7 mg/dL (0.2-1.3); BLOOD UREA NITROGEN 16 mg/dL (7-21); CALCIUM 8.4 mg/dL (8.4-10.5); CARBON DIOXIDE 26 mmol/L (21-33); CHLORIDE 101 mmol/L (98-107); GFR AFRICAN-AMERICAN > 60; GLUCOSE,RANDOM 88 mg/dL (70-110); MAGNESIUM 1.9 mg/dL (1.7-2.2); PHOSPHOROUS 3.7 mg/dL (2.5-4.5); POTASSIUM 3.5 mmol/L (3.6-5.0); SODIUM 136 mmol/L (132-148); TOTAL PROTEIN 8.3 g/dL (5.8-8.3)
[2017-07-09] MEDS ORDERED: Potassium Chloride 20 mEq ER Tab PO ONE (07:31)
[2017-07-09] MEDS: Levothyroxine 50 MCG TAB PO SCH (08:36)
[2017-07-09] MEDS: cycloSPORINE 0.05 % Opth Emulsion UD OU SCH (10:00)
[2017-07-09] MEDS: CEVIMELINE HCL 30 MG PO SCH (10:34)
--- NOTE | 2017-07-09 13:22 | CP.PCM.PN ---
Subjective - Date & Time of Evaluation Date of Evaluation: 07/09/17 Time of Evaluation: 06:00 - Subjective Subjective: Patient was seen and evaluated bedside. Patient was lying comfortably in bed and saying she is feeling well, with no complaints and no acute issues. She also states her eye is feeling better. She denied any CP, SOB, F/N/V/, sore throat, abdominal pain, dizziness, lightheadedness, or any other complaints. Objective - Vital Signs/Intake and Output Vital Signs (last 24 hours): Temp Pulse Resp BP Pulse Ox 99.1 F 91 H 18 158/88 H 98 07/09/17 12:00 07/09/17 12:00 07/09/17 12:00 07/09/17 12:00 07/09/17 06:00 Intake and Output: 07/09/17 07/09/17 06:59 18:59 Intake Total 150 0 Balance 150 0 - Medications Medications: Current Medications Apixaban (Eliquis) 5 mg PO DAILY [facility] PRN Reason: Protocol Last Admin: 07/09/17 10:33 Dose: 5 mg Aspirin (Ecotrin) 81 mg PO DAILY [facility] Last Admin: 07/09/17 10:33 Dose: 81 mg Atorvastatin Calcium (Lipitor) 40 mg PO DAILY [facility] Last Admin: 07/09/17 10:33 Dose: 40 mg Carvedilol (Coreg) 12.5 mg PO DAILY [facility] Last Admin: 07/09/17 10:33 Dose: 12.5 mg Ciprofloxacin (Ciloxan 0.3% Ophth Soln) 1 drop OD QID [facility] Cyclosporine (Restasis) 0 ea OU DAILY [facility] Last Admin: 07/08/17 10:09 Dose: 1 ea Erythromycin (Erythromycin) 1 applic OU Q4 [facility] Last Admin: 07/09/17 08:36 Dose: 1 appl Levothyroxine Sodium (Synthroid) 50 mcg PO ACB [facility] Last Admin: 07/09/17 08:36 Dose: 50 mcg Losartan Potassium (Cozaar) 50 mg PO DAILY [facility] Last Admin: 07/09/17 10:33 Dose: 50 mg Memantine (Namenda) 5 mg PO BID [facility] Last Admin: 07/09/17 10:33 Dose: 5 mg Non-Formulary Medication (Cevimeline Hcl [Cevimeline Hcl]) 30 mg PO DAILY [facility] Last Admin: 07/09/17 10:34 Dose: Not Given Pantoprazole Sodium (Protonix Ec Tab) 40 mg PO 0600 [facility] Last Admin: 07/09/17 05:47 Dose: 40 mg Potassium Chloride (K-Dur 20 Meq Er Tab) 20 meq PO BRK [facility] - Labs Labs: 07/09/17 05:20 07/09/17 05:20 PT 11.2 Seconds (9.9-11.8) 07/06/17 00:55 INR 1.04 (0.93-1.08) 07/06/17 00:55 APTT 27.3 Seconds (23.7-30.8) 07/06/17 00:55 - Constitutional Appears: Non-toxic, No Acute Distress - Head Exam Head Exam: ATRAUMATIC, NORMAL INSPECTION, NORMOCEPHALIC - Eye Exam Eye Exam: PERRL Pupil Exam: PERRL Additional comments: conjunctval erythema markedly decreased fro yesterday, slight exudate - ENT Exam ENT Exam: Mucous Membranes Moist, Normal Exam - Respiratory Exam Respiratory Exam: Clear to Ausculation Bilateral, NORMAL BREATHING PATTERN - Cardiovascular Exam Cardiovascular Exam: REGULAR RHYTHM, +S1, +S2 - GI/Abdominal Exam GI & Abdominal Exam: absent: Tenderness - Extremities Exam Extremities Exam: Normal Inspection. absent: Pedal Edema - Neurological Exam Neurological Exam: Alert, Awake - Psychiatric Exam Psychiatric exam: Normal Affect - Skin Skin Exam: Normal Color Assessment and Plan - Assessment and Plan (Free Text) Assessment: 82 F with PMHx of CAD, Afib on Eliquis, CHF Ef 30%, HLD, HTN, Hypothyroidism, Glaucoma, Sjogrens Syndrome, Depression, admitted for evaluation of syncopal episode. She is being worked up for syncope and treated for right eye conjunctivitis. Plan: 1. Syncope -vasovagal vs anemia vs cardiac vs neuro origin -no signs of dehydration -TSH wnl -EKG Afib rate controlled no ST changes, Serial EKG obtained -Troponins Negative x3 -asa, lipitor, elaquis continue -CTH: Nonspecific white matter changes, Acute infarction may be CT occult in first 24 hr, Fu with MRI if Focal deficits persists -Neurology, Dr. Stern Consulted- avoid drop in BP, continue current meds, possible follow as outpatient 2. Rt Eye Conunctivitis -Hx of Sjogrens -Cyclosporine Eye drops continued -Erythromycin eye ointment continue -Optho consuled, Dr. Bradley 3. Afib -Continue eliquis -fu serial EKG -> A.flutter, episodic -Continue to monitor 4. CHF -EF 30-35% on 07/07/2017 -strict I&Os -daily weights -lasix prn -continue losartan 50 mg PO daily 5. HTN- chronic -Current BP: 158/88 -Continue home meds -continue to monitor 6. HLD -continue Lipitor -07/06/2017 Cholesterol: 112 7. Hypothyroidism -Continue synthroid 8. Sjogrens Syndrome -Continue Cevimeline, cyclosporine 9. Dementia -Continue Namenda 10. GI / DVT ppx reviewed Case discussed with medical case manager, patient will be sent possibly to [facility], will speak to niece as well for plan
[2017-07-09] MEDS: Ciprofloxacin 0.3% OPTH SOLN OD SCH ×3 (13:42→21:15)
[2017-07-09] MEDS ORDERED: Ciprofloxacin 0.3% OPTH SOLN OU SCH (14:00)
[2017-07-10] MEDS: Erythromycin 0.5% Ophth Oint 1 APPLIC/3.5 G OU SCH ×3 (00:18→08:12)
[2017-07-10] MEDS: Pantoprazole 40 mg EC Tab PO SCH (05:29)
[2017-07-10] MEDS ORDERED: Potassium Chloride 20 mEq ER Tab PO SCH (08:00)
[2017-07-10] MEDS: Levothyroxine 50 MCG TAB PO SCH (08:13)
--- NOTE | 2017-07-10 11:42 | CON ---
HISTORY OF PRESENT ILLNESS: Mrs. Dave is an 82-year-old white female, admitted to the [facility] for syncope. I was asked to see her for conjunctivitis in the right eye. PHYSICAL EXAMINATION: Her exam was remarkable for conjunctivitis in the right eye. She also had ectropion in the right eye. The rest of the eye exam was normal. ASSESSMENT: Mrs. Dave has ectropion in her right eye with a secondary conjunctivitis. I had put her on Cipro ophthalmic solution 1 drop to the right eye 4 times a day, I did continue that and put her on TobraDex 1 drop to the right eye 4 times a day. I told her to come see me after she is discharged. Merrick Bradley MD
[2017-07-10 11:44] LABS: BASO # 0.01 K/mm3 (0.0-2.0); BASO % 0.3 % (0.0-3.0); EOS # 0.1 (0.0-0.7); EOS % 2.7 % (1.5-5.0); GRAN # 2.04 (1.4-6.5); GRAN % 60.5 % (50.0-68.0); HEMATOCRIT 33.4 % (36.0-48.0); LYMPH # 0.9 (1.2-3.4); MEAN CELL VOLUME 87.9 fl (80.0-105.0); MEAN CORPUSCULAR HEMOGLOBIN 29.5 pg (25.0-35.0); MEAN CORPUSCULAR HGB CONC 33.5 g/dl (31.0-37.0); MEAN PLATELET VOLUME 11.5 fl (7.0-11.0); MONO # 0.3 (0.1-0.6); MONO % 9.5 % (1.0-6.0); RED CELL DISTRIBUTION WIDTH 14.7 % (11.5-14.5); WHITE BLOOD COUNT 3.4 10^3/ul (4.5-11.0)
[2017-07-10 11:53] VITALS: BP 143/88; RESP 20; TEMP 98.1
[2017-07-10 11:53] LABS: ALB/GLOB RATIO 0.8 (1.1-1.8); ALKALINE PHOSPHATASE 80 U/L (38-126); ALT/SGPT 46 U/L (7-56); AST/SGOT 63 U/L (14-36); BILIRUBIN,TOTAL 0.7 mg/dL (0.2-1.3); BLOOD UREA NITROGEN 23 mg/dL (7-21); CALCIUM 8.6 mg/dL (8.4-10.5); CARBON DIOXIDE 24 mmol/L (21-33); CHLORIDE 102 mmol/L (98-107); GFR AFRICAN-AMERICAN > 60; GLUCOSE,RANDOM 88 mg/dL (70-110); POTASSIUM 4.6 mmol/L (3.6-5.0); SODIUM 135 mmol/L (132-148); TOTAL PROTEIN 8.2 g/dL (5.8-8.3)
[2017-07-10] MEDS: Ciprofloxacin 0.3% OPTH SOLN OD SCH (11:57)
[2017-07-10] MEDS: CEVIMELINE HCL 30 MG PO SCH (12:48)
--- NOTE | 2017-07-10 13:33 | CP.PCM.DIS ---
Provider - Provider Date of Admission: 07/07/17 17:07 Attending physician: Oral Pink MD Primary care physician: Maynor Roberts MD Time Spent in preparation of Discharge (in minutes): 70 Hospital Course - Lab Results Lab Results: Most Recent Lab Values WBC 3.4 10^3/ul (4.5-11.0) L 07/10/17 10:16 RBC 3.80 10^6/uL (3.5-6.1) 07/10/17 10:16 Hgb 11.2 g/dL (12.0-16.0) L 07/10/17 10:16 Hct 33.4 % (36.0-48.0) L 07/10/17 10:16 MCV 87.9 fl (80.0-105.0) 07/10/17 10:16 MCH 29.5 pg (25.0-35.0) 07/10/17 10:16 MCHC 33.5 g/dl (31.0-37.0) 07/10/17 10:16 RDW 14.7 % (11.5-14.5) H 07/10/17 10:16 Plt Count 113 10^3/uL (120.0-450.0) L 07/10/17 10:16 MPV 11.5 fl (7.0-11.0) H 07/10/17 10:16 Gran % 60.5 % (50.0-68.0) 07/10/17 10:16 Lymph % (Auto) 27.0 % (22.0-35.0) 07/10/17 10:16 [place] % (Auto) 9.5 % (1.0-6.0) H 07/10/17 10:16 Eos % (Auto) 2.7 % (1.5-5.0) 07/10/17 10:16 Baso % (Auto) 0.3 % (0.0-3.0) 07/10/17 10:16 Gran # 2.04 (1.4-6.5) 07/10/17 10:16 Lymph # 0.9 (1.2-3.4) L 07/10/17 10:16 [place] # 0.3 (0.1-0.6) 07/10/17 10:16 Eos # 0.1 (0.0-0.7) 07/10/17 10:16 Baso # 0.01 K/mm3 (0.0-2.0) 07/10/17 10:16 PT 11.2 Seconds (9.9-11.8) 07/06/17 00:55 INR 1.04 (0.93-1.08) 07/06/17 00:55 APTT 27.3 Seconds (23.7-30.8) 07/06/17 00:55 Sodium 135 mmol/L (132-148) 07/10/17 10:16 Potassium 4.6 mmol/L (3.6-5.0) 07/10/17 10:16 Chloride 102 mmol/L (98-107) 07/10/17 10:16 Carbon Dioxide 24 mmol/L (21-33) 07/10/17 10:16 Anion Gap 14 (10-20) 07/10/17 10:16 BUN 23 mg/dL (7-21) H 07/10/17 10:16 Creatinine 0.6 mg/dL (0.7-1.2) L 07/10/17 10:16 Est GFR ( Amer) > 60 07/10/17 10:16 Est GFR (Non-Af Amer) > 60 07/10/17 10:16 POC Glucose (mg/dL) 88 mg/dL (65-110) 07/06/17 11:36 Random Glucose 88 mg/dL (70-110) 07/10/17 10:16 Calcium 8.6 mg/dL (8.4-10.5) 07/10/17 10:16 Phosphorus 3.7 mg/dL (2.5-4.5) 07/09/17 05:20 Magnesium 1.9 mg/dL (1.7-2.2) 07/09/17 05:20 Iron 63 ug/dL (45-180) 07/06/17 06:00 TIBC 331 ug/dL (265-497) 07/06/17 06:00 % Saturation 19 % (20-55) L 07/06/17 06:00 Ferritin 26.1 ng/mL 07/06/17 06:00 Total Bilirubin 0.7 mg/dL (0.2-1.3) 07/10/17 10:16 AST 63 U/L (14-36) H 07/10/17 10:16 ALT 46 U/L (7-56) 07/10/17 10:16 Alkaline Phosphatase 80 U/L (38-126) 07/10/17 10:16 Lactate Dehydrogenase 557 U/L (333-699) 07/06/17 00:55 Total Creatine Kinase 37 U/L (35-230) 07/06/17 00:55 Troponin I < 0.01 ng/mL 07/07/17 20:00 NT-Pro-B Natriuret Pep 2010 pg/mL (0-450) H 07/06/17 06:00 Total Protein 8.2 g/dL (5.8-8.3) 07/10/17 10:16 Albumin 3.7 g/dL (3.0-4.8) 07/10/17 10:16 Globulin 4.5 gm/dL 07/10/17 10:16 Albumin/Globulin Ratio 0.8 (1.1-1.8) L 07/10/17 10:16 Triglycerides 85 mg/dL (35-160) 07/06/17 06:00 Cholesterol 112 mg/dL (130-200) L 07/06/17 06:00 LDL Cholesterol Direct 64 mg/dL (0-129) 07/06/17 06:00 HDL Cholesterol 30 mg/dL (29-60) 07/06/17 06:00 Vitamin B12 535 pg/mL (239-931) 07/06/17 06:00 Folate 8.9 ng/mL 07/06/17 06:00 - Hospital Course Hospital Course: 82 F with PMHx of CAD, Afib on coumadin, CHF Ef 30%, HLD, HTN, Hypothyroidism, Glaucoma, Sjogrens Syndrome, Depression, dementia presented to the [facility] on 07/06/2017 with complaints of syncopal episodes as described by the patients niece. Pt Niece stated that the pt had been experiencing states of AMS with a witnessed syncopal episode while at home yesterday. Pt also was noted to have redness and conjunctival injection to the red eye. Pt is a poor historian, as she is demented and unable to provide HPI or ROS. Pt was admitted and worked up for syncope. Neurology was consulted, CT scan of the head was negative, a carotid doppler ordered and showed 20-39% stenosis b/l. Echo was ordered and showed 30-35% EF. Pt was started on losartan. Pt was started on erythromycin for conjunctival injection of the right eye. The conjunctival injection was not improving, antibiotics were switched to rocephin and an ophthalmology consult placed. The patients eye began to improve. Patient had low potassium, which was repleted. Patient was seen by PT and recommended rehab to LTC and discussed with niece. Optho conssulted for eye, recommendations made. Pt discharged to [facility] and told to follow up outpaient with Dr. Bradley for her eye. Discharge Exam - Head Exam Head Exam: ATRAUMATIC, NORMAL INSPECTION, NORMOCEPHALIC - Eye Exam Additional comments: Right eye slight discharge - ENT Exam ENT Exam: Normal Exam - Neck Exam Neck exam: Normal Inspection - Respiratory Exam Respiratory Exam: Clear to PA & Lateral, NORMAL BREATHING PATTERN - Cardiovascular Exam Cardiovascular Exam: REGULAR RHYTHM, +S1, +S2 - GI/Abdominal Exam GI & Abdominal Exam: Normal Bowel Sounds, Unremarkable - Extremities Exam Extremities exam: pedal pulses present - Neurological Exam Neurological exam: Alert - Psychiatric Exam Psychiatric exam: Normal Mood Discharge Plan - Follow Up Plan Condition: STABLE [facility] Instructions: Syncope (DC), Conjunctivitis (GEN) Additional Instructions: Patient will be followed in subacute by physicians. Referrals: Mayonr Roberts MD [Primary Care Provider] - Merrick Bradley MD [Staff Provider] -
[2017-07-10 13:47] VITALS: O2SAT 99
[2017-07-10] MEDS ORDERED: Tobramycin/Dexamethasone (Tobradex) Opth Sol (2.5 ml) OD SCH (14:00)
[2017-07-10 14:23] VITALS: PULSE 74
--- NOTE | 2017-07-11 12:22 | PQF GENQUE ---
07/11/17 Dr. Roberts, Any etiology for syncope definitely determined (see progress notes of 07/08 and 07/09)? Thank you. Clarification of your documentation is requested to better reflect the severity of illness and intensity of treatment of your patient. Indicators present [] Specify: [] [] Specify: [] [] Specify: [] [] Specify: [] Location in the medical record that reflects the above clinical findings: [] Treatment Provided: [] PHYSICIAN'S RESPONSE Based on your medical judgment of the clinical indicators outlined above please clarify the following: [] Practitioner response [] If unable to determine, please check the box, sign and date. Present On Admission (POA) Indicator: [] Present at the time of admission [] Not present at the time of admission [] Clinically Undetermined In responding to this query, please exercise your independent professional judgment. The fact that a question is asked does not imply that any particular answer is desired or expected. Thank you for your clarification on this documentation. If you have any questions please call:[ ] * Thank you, [ ] seed laboratory technician SHUN
== END 2017-07-10 15:54 | DRG 312 ==
LOC: ED 23:20 → ERH 07-06 02:46 → 2RNO 07-06 06:20 → OBSVTOIN 07-07 17:07
PROVIDERS: ADMIT Internal Medicine; ATTEND Internal Medicine
DX: R55 Syncope and collapse (principal); I11.0 Hypertensive heart disease with heart failure; F03.90 Unspecified dementia, unspecified severity, without behavioral disturbance, psychotic disturbance, mood disturbance, and anxiety; I50.9 Heart failure, unspecified; D64.9 Anemia, unspecified; E03.9 Hypothyroidism, unspecified; E78.5 Hyperlipidemia, unspecified; H10.9 Unspecified conjunctivitis; H40.9 Unspecified glaucoma; H91.92 Unspecified hearing loss, left ear; I25.10 Atherosclerotic heart disease of native coronary artery without angina pectoris; I48.91 Unspecified atrial fibrillation; M35.00 Sjogren syndrome, unspecified; R40.2412 Glasgow coma scale score 13-15, at arrival to emergency department; H02.103 Unspecified ectropion of right eye, unspecified eyelid; K29.70 Gastritis, unspecified, without bleeding; R26.81 Unsteadiness on feet; F32.89 Other specified depressive episodes; Z86.73 Personal history of transient ischemic attack (TIA), and cerebral infarction without residual deficits; Z87.440 Personal history of urinary (tract) infections; Z79.899 Other long term (current) drug therapy; Z79.01 Long term (current) use of anticoagulants